=== PATIENT | female | born 1945 | race Caucasian/White ===

== ENCOUNTER 2016-10-08 11:22 | Inpatient (IN) | payer MEDICARE, MEDICAID ==
[~2016-10-08] VITALS: Ht 165.1 cm; Wt 79.8 kg
[~2016-10-08 11:22] MED LIST: ALPR0.5T8 PO; AMLO1TAB39 PO; ASPI-991 PO; ATOR10TA PO; BLOO-140 IN; CALC500T29 PO; CEPH-570 PO; ERGO50003 PO; FLUO-120 PO; LEVO100T9 PO; METF500T4 PO; VENL150C2 PO
[2016-10-08] MEDS ORDERED: LORAZEPAM INJ 2 MG/ML VIAL ONE (11:25)
--- NOTE | 2016-10-08 11:26 | NUR ---
PT BIBRA FROM HOME. DAUGHTER CALLED 911 CONCERN ABOUT MOTHER FOR POSSIBLE PROZAC OD. PT AGITATED, RESTLESS FINANCIAL INSTITUTION TREASURER. YELLING "I WANT TO GO HOME" AND LOOKING FOR HER DAUGHTER. PLACED ON 2 PT RESTRAINT PER ERMD ORDER. PLACED ON MONITOR. STABLE VITALS. AWAITING MD SIMMONS.
[2016-10-08] MEDS ORDERED: LORAZEPAM INJ 2 MG/ML VIAL IM ONE (11:30)
--- NOTE | 2016-10-08 11:34 | NUR ---
FLAGMAN AT BEDSIDE FOR BLOOD DRAW.
[2016-10-08 11:35] LABS: BASOPHILS # (AUTO) 0.2 /CMM (0.0-0.2); BASOPHILS % (AUTO) 1.8 % (0.0-2.0); EOSINOPHILS # (AUTO) 0.1 /CMM (0.0-0.7); EOSINOPHILS % (AUTO) 0.6 % (0.0-6.0); HEMATOCRIT 39 % (33-45); HEMOGLOBIN 12.9 g/dL (11.5-14.8); LYMPHOCYTES % (AUTO) 31.8 % (20.0-44.0); MEAN CORPUSCULAR HEMOGLOBIN 30 PG (26.0-33.0); MEAN CORPUSCULAR HGB CONC 33 g/dl (31.0-36.0); MEAN CORPUSCULAR VOLUME 91 fL (82-100); MONOCYTES # (AUTO) 0.5 /CMM (0.1-1.30); MONOCYTES % (AUTO) 5.5 % (2.0-12.0); NEUTROPHILS # (AUTO) 5.6 /CMM (1.8-8.9); NEUTROPHILS % (AUTO) 60.3 % (43.0-81.0); PLATELET COUNT (AUTO) 358 /CMM (150-450); RDW COEFFICIENT OF VARIATION 13.3 (11.5-15.0); RED BLOOD CELL COUNT(AUTO) 4.29 MIL/uL (4.0-5.2); WHITE BLOOD COUNT (AUTO) 9.4 K/uL (4.3-11.0)
[2016-10-08 11:42] LABS: CALCIUM, SERUM 8.9 mg/dL (8.5-10.1); CARBON DIOXIDE 27 mmol/L (21-32); CHLORIDE 104 mmol/L (98-107); CREATININE 0.9 mg/dL (0.6-1.3); GLUCOSE 124 mg/dL (74-106); POTASSIUM 4.4 mmol/L (3.5-5.1); SODIUM SERUM 138 mmol/L (136-145); UREA NITROGEN, BLOOD 22 mg/dL (7-18)
[2016-10-08 11:44] LABS: ALCOHOL, BLOOD < 3 mg/dL (0-0)
--- NOTE | 2016-10-08 11:56 | NUR ---
CALLED ALEXI MONDRAGON FOR PSYCH EVAL
--- NOTE | 2016-10-08 12:07 | NUR ---
PT UNABLE TO PROVIDE URINE SAMPLE. DR WALT JOE.
--- NOTE | 2016-10-08 13:23 | NUR ---
REPORT CALLED TO MARIAN. PT TRANSFERED TO FLOOR. STABLE CONDITION.
[2016-10-08] MEDS ORDERED: MAG HYDROX/AL HYDROX/SIMETH 30 ML UDC PO PRN (14:00)
[2016-10-08] MEDS ORDERED: MAGNESIUM HYDROXIDE 30 ML UDC PO PRN (14:00)
[2016-10-08] MEDS: LORAZEPAM 0.5 MG TABLET PO PRN (14:20)
--- NOTE | 2016-10-08 14:23 | NUR ---
OIL BAY TECHNICIAN-NOTES NOTED PATIENT VERY ANXIOUS UNABLE TO SIT STILL STATED" I WANT TO GO HOME", REDIRECTED PATIENT ,OFFERED ATIVAN AND AGREED. ATIVAN 1MG P.O GIVEN PRN ORDER. WILL CONT. MONITORING FOR SAFETY AND BEHAVIOR.
[2016-10-08 16:00] VITALS: BP 150/96
[2016-10-08 16:55] VITALS: BP 127/55
[2016-10-08] MEDS: ACETAMINOPHEN 325 MG TABLET PO PRN (17:56)
--- NOTE | 2016-10-08 17:56 | NUR ---
TECHNOLOGY APPLICATIONS TEACHER-NOTES PATIENT REQUESTING FOR TYLENOL FOR HEADACHE, TYLENOL 650MG P.O GIVEN ORDERED.WILL CONT. MONITORING FOR SAFETY.
--- NOTE | 2016-10-08 17:59 | NUR ---
MANAGER HOUSEKEEPING-NOTES ADMITTED 71 Y.O FEMALE PATIENT FROM ER FOR 5150 FOR DTS/GD. DR. HUMPHREY (PSYCHIATRIST) MADE AWARE OF PATIENT ADMISSION IN THE UNIT WITH ORDERS. CALLED [facility] FOR DR. JACOB ( MEDICAL) FOR ORDERS STILL AWAITING FOR CALL BACK. PATIENT SON ZURI MADE AWARE OF PATIENT ADMISSION. ON FACE TO FACE ASSESSMENT PATIENT VERBALIZED THAT SHE IS DEPRESSED BUT DENIES SI/HI AT THIS TIME. PATIENT IS ANXIOUS,CRYING WANTED TO GO HOME . REDIRECTED AND ATIVAN 1MG P.O GIVEN PRN ORDER. PATIENT REFUSED BODY ASSESSMENT DESPITE EXPLANATIONS OF HOSPITAL POLICIES. CONTRABAND DONE. PATIENT WAS ORIENTED IN THE UNIT AND UNIT POLICIES. ALL NEEDS ATTENDED AND ANTICIPATED. WILL ENDORSE TO FITTER AND TURNER FOR CONTINUITY OF CARE.
--- NOTE | 2016-10-08 18:19 | NUR ---
DIVISION HUMAN RESOURCES MANAGER-NOTES RECEIVED CALL FROM DR. JACOB STATED SHE WILL RECONCILE PATIENT MEDICATIONS.
[2016-10-08 19:54] VITALS: BP 146/69
[2016-10-08] MEDS ORDERED: DEXTROSE 50%-WATER 50 ML DISP.SYRIN IV PRN (20:30)
--- NOTE | 2016-10-08 20:30 | NUR ---
GPS RN NOTES PER PT. SMOKING 1 PACK CIGGRTE A DAY, AWARE , NEW ORDERS FOR NICODERM PATCH 21 MG DAILY.
[2016-10-08 21:00] VITALS: BP 135/70
--- NOTE | 2016-10-08 21:00 | NUR ---
RN GPS NOTES PT. REFUSED TO REMOVED THE DENTURES , PT.STATED I WANT KEEP IT .
[2016-10-08] MEDS: INSULIN REGULAR, HUMAN 100 UNIT/ML 3 ML VIAL SQ PRN (21:20)
[2016-10-08] MEDS: BLOOD SUGAR DIAGNOSTIC 1 EACH STRIP IN SCH (21:21)
--- NOTE | 2016-10-08 21:21 | NUR ---
[id number]: PT. BS 148 AND PT.REFUSED INSULIN OF 2 UNITS . ENCOURAGE PT TO BE COMPLIANT WITH MEDICATIONS. OFFERED 3X. EDUCATED PT ABOUT THE SIDE EFFECTS AND USAGE AND THE BENEFITS OF MEDICATION. PT STATED, "I DON'T WANTED , I WANT GO HOME .
[2016-10-08] MEDS: ZOLPIDEM TARTRATE 5 MG TABLET PO PRN (21:26)
[2016-10-09] MEDS ORDERED: hydrALAZINE HCL 25 MG TABLET PO PRN (00:30)
[2016-10-09] MEDS: ACETAMINOPHEN 325 MG TABLET PO PRN ×2 (04:18→09:30)
--- NOTE | 2016-10-09 06:30 | NUR ---
GPS RN NOTES PT. REFUSED TO PROVIDE URINE SPECIMEN AT THIS TIME , ENCOURAGED FOR SPECIMEN STILL REFUSED ENDORSE TO NEXT SHIFT FOR FOLLOW UP.
--- NOTE | 2016-10-09 07:21 | NUR ---
GPS RN NOTES PT. SLEPT 6 HOURS NO DISTRESS NOTED , DENIES SI HI / DUNGING SHIFT ENDORSE TO NEXT, SHIFT FOR CONTINUITY OF CARE .
[2016-10-09 08:00] VITALS: BP 104/66
[2016-10-09] MEDS: NICOTINE PATCH (21MG) 21 MG PATCH.TD24 TD SCH (08:31)
[2016-10-09] MEDS: BLOOD SUGAR DIAGNOSTIC 1 EACH STRIP IN SCH ×4 (08:31→21:08)
[2016-10-09] MEDS: METFORMIN 500 MG TABLET PO SCH ×2 (08:32→17:10)
[2016-10-09] MEDS: ATORVASTATIN 10 MG TABLET PO SCH (08:32)
[2016-10-09] MEDS: LEVOTHYROXINE SODIUM 100 MCG TABLET PO SCH (08:33)
[2016-10-09 08:43] LABS: ALBUMIN 2.9 g/dL (3.4-5.0); BILIRUBIN,TOTAL 0.2 mg/dL (0.2-1.0); CALCIUM, SERUM 8.7 mg/dL (8.5-10.1); CREATININE 0.7 mg/dL (0.6-1.3); TOTAL PROTEIN, SERUM 6.4 g/dL (6.4-8.2)
[2016-10-09] MEDS: INSULIN REGULAR, HUMAN 100 UNIT/ML 3 ML VIAL SQ PRN ×2 (08:44→17:42)
--- NOTE | 2016-10-09 09:00 | NUR ---
GPS/RN PATIENT REFUSED TO REMOVE DENTURES X 3, EXPLAINED RISKS BUT STILL REFUSED. WAIVER SIGNED BY PATIENT
[2016-10-09] MEDS: ASPIRIN EC 81 MG TABLET.DR PO SCH (09:22)
[2016-10-09] MEDS: LORAZEPAM 0.5 MG TABLET PO PRN ×3 (09:34→23:35)
--- NOTE | 2016-10-09 09:34 | NUR ---
GPS/RN PATIENT AGITATED, ANXIOUS, UNABLE TO RE-DIRECT, ADMINISTERED ATIVAN 1 MG PO ORDERED, WILL CONTINUE TO MONITOR.
--- NOTE | 2016-10-09 10:50 | NUR ---
Initial discharge plan: Patient resides at her home located at [address] [place], [place] [id number] . Daughter Olivia ([phone]) and son Bay [phone] and want her placed in a skilled nursing facility. STEF will follow up wtih her therapist Freddie Wilder [phone]. SW will help form a safe and proper discharge. For smoking cessation, patient was referred to [facility] 800-LUNGUSA or [facility] [phone].
--- NOTE | 2016-10-09 12:05 | NUR ---
GPS/RN PATIENT IS EXTREMELY AGITATED AND ANXIOUS, REFUSED ACCUCHECK X 3, EXPLAINED RISKS AND BENEFITS BUT CONTINUES TO REFUSE, WILL CONTINUE TO ENCOURAGE TO COMPLY WITH MD REGIMEN AND TREATMENTS.
--- NOTE | 2016-10-09 12:47 | NUR ---
SW received a voicemail from pt's sister, Fariha [phone] who also requested pt. to be placed in a truck terminal manager facility. STEF will start the placement process.
[2016-10-09] MEDS ORDERED: DIVALPROEX SODIUM 250 MG TABLET.DR PO SCH (13:30)
[2016-10-09] MEDS ORDERED: PAROXETINE HCL 20 MG TABLET PO SCH (13:30)
--- NOTE | 2016-10-09 15:53 | NUR ---
GPS/RN PATIENT PRESENTS WITH ACUTE AGITATION, DR HUMPHREY NOTIFIED REGARDING THE ATIVAN 1MG Q 6 HOURS, WITH A START TIME OF 1800 TODAY, HE STATED THAT I COULD ADMINISTER FIRST DOSE NOW. ADMINISTERED ORDERED, WILL CONTINUE TO MONITOR.
[2016-10-09 16:22] VITALS: BP 137/77
[2016-10-09] MEDS: DIVALPROEX SODIUM 250 MG TABLET.DR PO SCH (17:10)
[2016-10-09] MEDS: PAROXETINE HCL 20 MG TABLET PO SCH (17:16)
[2016-10-09 20:00] VITALS: BP 114/62
--- NOTE | 2016-10-09 20:15 | NUR ---
GPS/RN NOTE: PATIENT UP AMBULATING AT THE HALLWAY, CRYING, VERY EMOTIONAL, BACK AND FORTH TO THE NURSING STATION, ASKING FOR SLEEPING PILL. EXPLAINED THAT IT IS TO EARLY FOR HER THAT. PATIENT KEPT REPEATING HERSELF MANY TIMES. HAD HER ATIVAN AT 1552.
[2016-10-09] MEDS: ZOLPIDEM TARTRATE 5 MG TABLET PO PRN (20:27)
--- NOTE | 2016-10-09 20:28 | NUR ---
GPS/RN NOTE: RERQUESTING FOR HER SLEEPING PILL, TEMAZEPAM 7.5 MG TAB 1 PO GIVEN
--- NOTE | 2016-10-09 21:08 | NUR ---
GPS/RN NOTE: ACCUCHECK 112 MG/DL, NO INSULIN S. SCALE DUE AT THIS TIME. HS SNACK MILK AND PUDDING GIVEN.
--- NOTE | 2016-10-09 21:46 | NUR ---
GPS/RN NOTE: PATIENT ASLEEP AT THIS TIME.
--- NOTE | 2016-10-09 23:37 | NUR ---
GPS/RN NOTE: PATIENT AWAKE, FEELING ANXIOUS, LORAZEPAM 1 MG PO GIVEN
[2016-10-10 08:00] VITALS: BP 134/66
[2016-10-10] MEDS: BLOOD SUGAR DIAGNOSTIC 1 EACH STRIP IN SCH ×4 (08:10→21:20)
[2016-10-10] MEDS: LEVOTHYROXINE SODIUM 100 MCG TABLET PO SCH (08:19)
[2016-10-10] MEDS: ATORVASTATIN 10 MG TABLET PO SCH (08:55)
[2016-10-10] MEDS: DIVALPROEX SODIUM 250 MG TABLET.DR PO SCH ×3 (08:55→16:11)
[2016-10-10] MEDS: METFORMIN 500 MG TABLET PO SCH ×2 (08:56→16:11)
[2016-10-10] MEDS: NICOTINE PATCH (21MG) 21 MG PATCH.TD24 TD SCH (08:56)
[2016-10-10] MEDS: PAROXETINE HCL 20 MG TABLET PO SCH (08:56)
[2016-10-10] MEDS: ASPIRIN EC 81 MG TABLET.DR PO SCH (08:56)
[2016-10-10] MEDS: LORAZEPAM 0.5 MG TABLET PO PRN ×2 (10:24→18:32)
--- NOTE | 2016-10-10 10:29 | NUR ---
BIOMETRIC SCREENER-NOTES NOTED PATIENT VERY ANXIOUS ,PACING IN AND OUT OF HER ROOM, REDIRECTED PATIENT ,OFFERED ATIVAN AND AGREED. ATIVAN 1MG P.O GIVEN PRN ORDER. WILL CONT. MONITORING FOR SAFETY AND BEHAVIOR.
[2016-10-10] MEDS: QUETIAPINE FUMARATE 25 MG TABLET PO SCH ×2 (12:19→21:21)
[2016-10-10] MEDS: INSULIN REGULAR, HUMAN 100 UNIT/ML 3 ML VIAL SQ PRN ×2 (12:22→21:39)
--- NOTE | 2016-10-10 12:23 | NUR ---
BONDING EQUIPMENT OPERATOR-NOTES PATIENT BLOOD SUGAR WAS 136MG/DL,2 UNITS OF HUMULIN R GIVEN .
--- NOTE | 2016-10-10 12:25 | NUR ---
STEF spoke with Chloé [phone] from [facility] Address: [address] [facility], [place] [address] fax [phone] and she requested paperwork to be faxed to review. Chloé mentioned that they have no bed availability at this time, but may have it next week. STEF faxed paperwork.
--- NOTE | 2016-10-10 14:10 | NUR ---
SW left a voicemail for pt's son, Bay [phone] informing him of all that's being done in order to have an accepting facility for the patient to go to. STEF will follow up
[2016-10-10 16:33] VITALS: BP 124/66
--- NOTE | 2016-10-10 18:10 | NUR ---
DIMPLING MACHINE OPERATOR-NOTES PATIENT UNABLE TO PROVIDE URINE. STATED" I DON'T WANT IT", ATTEMPTED SEVERAL TIMES BUT PATIENT STILL UNCOOPERATIVE. WILL ENDORSE TO THE SENIOR CHEMIST.
--- NOTE | 2016-10-10 19:13 | NUR ---
ASSOCIATE BROKER-NOTES NOTED PATIENT VERY ANXIOUS ,PACING IN AND OUT OF HER ROOM,REQUESTING FOR ATIVAN. ATIVAN 1MG P.O GIVEN PRN ORDER . WILL CONT. MONITORING FOR SAFETY AND BEHAVIOR.
--- NOTE | 2016-10-10 19:26 | NUR ---
GPS/RN NOTE:' AWAKE, ALERT, KEPT COMING TO THE N. STATION, ASKING FOR SLEEPING PILL, EXPLAINED MEDICATION NOT DUE YE. NO APPARENT DISTRESS NOTED. SON VISITING.
[2016-10-10 20:00] VITALS: BP 111/52
--- NOTE | 2016-10-10 21:23 | NUR ---
GPS/RN NOTE: ACCUCHECK 138 MG/DL
[2016-10-10] MEDS: ZOLPIDEM TARTRATE 5 MG TABLET PO PRN (21:25)
--- NOTE | 2016-10-10 21:25 | NUR ---
GPS/RN NOTE: C/O INSOMNIA, AMBIEN 5 MG TAB PO GIVEN.
[2016-10-10] MEDS: ACETAMINOPHEN 325 MG TABLET PO PRN (21:53)
--- NOTE | 2016-10-10 21:53 | NUR ---
GPS/RN NOTE: C/O GENERALIZED BODY PAIN, TYLENOL 650 MG TAB PO GIVEN.
--- NOTE | 2016-10-11 07:40 | NUR ---
BLOOD BANK MANAGER-NOTES PATIENT BLOOD SUGAR WAS 170MG/DL,3 UNITS OF HUMULIN R GIVEN .
[2016-10-11] MEDS: BLOOD SUGAR DIAGNOSTIC 1 EACH STRIP IN SCH ×4 (07:47→21:36)
[2016-10-11] MEDS: LEVOTHYROXINE SODIUM 100 MCG TABLET PO SCH (08:25)
[2016-10-11] MEDS: INSULIN REGULAR, HUMAN 100 UNIT/ML 3 ML VIAL SQ PRN ×3 (08:27→21:07)
[2016-10-11] MEDS: DIVALPROEX SODIUM 250 MG TABLET.DR PO SCH ×3 (08:31→16:21)
[2016-10-11] MEDS: ASPIRIN EC 81 MG TABLET.DR PO SCH (08:31)
[2016-10-11] MEDS: QUETIAPINE FUMARATE 25 MG TABLET PO SCH ×3 (08:31→21:36)
[2016-10-11] MEDS: METFORMIN 500 MG TABLET PO SCH ×2 (08:31→16:21)
[2016-10-11] MEDS: NICOTINE PATCH (21MG) 21 MG PATCH.TD24 TD SCH (08:31)
[2016-10-11] MEDS: ATORVASTATIN 10 MG TABLET PO SCH (08:31)
[2016-10-11 08:37] VITALS: BP 120/70
[2016-10-11] MEDS: ACETAMINOPHEN 325 MG TABLET PO PRN (08:58)
[2016-10-11] MEDS: PAROXETINE HCL 20 MG TABLET PO SCH (08:58)
--- NOTE | 2016-10-11 08:59 | NUR ---
OUTSIDE RIGGER-NOTES PATIENT STATED" GIVE ME TYLENOL FOR MY HEADACHE", TYLENOL 650MG P.O GIVEN PRN ORDER. WILL CONT. MONITORING FOR SAFETY.
[2016-10-11 16:12] VITALS: BP 140/66
[2016-10-11] MEDS: LORAZEPAM 0.5 MG TABLET PO PRN (17:07)
--- NOTE | 2016-10-11 17:09 | NUR ---
BILL SORTER-NOTES NOTED PATIENT VERY ANXIOUS ,PACING IN AND OUT OF HER ROOM,CRYING REQUESTING FOR ATIVAN. ATIVAN 1MG P.O GIVEN PRN ORDER . WILL CONT. MONITORING FOR SAFETY AND BEHAVIOR.
--- NOTE | 2016-10-11 17:47 | NUR ---
BRICK BURNER HEAD-NOTES PATIENT BLOOD SUGAR WAS 136MG/DL,2 UNITS OF HUMULIN R GIVEN .
[2016-10-11 20:00] VITALS: BP 139/79
[2016-10-12] MEDS: ZOLPIDEM TARTRATE 5 MG TABLET PO PRN (00:31)
[2016-10-12] MEDS: BLOOD SUGAR DIAGNOSTIC 1 EACH STRIP IN SCH ×4 (07:43→21:31)
[2016-10-12] MEDS: INSULIN REGULAR, HUMAN 100 UNIT/ML 3 ML VIAL SQ PRN (07:44)
[2016-10-12] MEDS: METFORMIN 500 MG TABLET PO SCH ×2 (08:08→16:28)
[2016-10-12] MEDS: ASPIRIN EC 81 MG TABLET.DR PO SCH (08:08)
[2016-10-12] MEDS: ATORVASTATIN 10 MG TABLET PO SCH (08:08)
[2016-10-12] MEDS: QUETIAPINE FUMARATE 25 MG TABLET PO SCH ×3 (08:08→21:31)
[2016-10-12] MEDS: PAROXETINE HCL 20 MG TABLET PO SCH (08:09)
[2016-10-12] MEDS: LEVOTHYROXINE SODIUM 100 MCG TABLET PO SCH (08:09)
[2016-10-12] MEDS: NICOTINE PATCH (21MG) 21 MG PATCH.TD24 TD SCH (08:09)
[2016-10-12] MEDS: DIVALPROEX SODIUM 250 MG TABLET.DR PO SCH ×3 (08:09→16:28)
[2016-10-12 08:11] VITALS: BP 152/80
--- NOTE | 2016-10-12 10:00 | NUR ---
RN-NOTES NOTED PT VERY ANXIOUS ,PACING IN AND OUT OF HER ROOM, CRYING REQUESTING TO GIVE HER MORE MEDICATIONS. ATIVAN 1MG P.O GIVEN PRN ORDER . WILL CONT. TO MONITOR FOR SAFETY AND BEHAVIOR.
[2016-10-12] MEDS: LORAZEPAM 0.5 MG TABLET PO PRN ×2 (10:07→16:01)
--- NOTE | 2016-10-12 12:00 | NUR ---
RN NOTES PT REFUSED FOR BLOOD SUGAR CHECK. EXPLAINED TO THE PT THE RISK AND BENEFITS THAT SHE'S AT RISK FOR HYPO AND HYPERGLYCEMIA, BUT STILL REFUSED.
[2016-10-12] MEDS: ACETAMINOPHEN 325 MG TABLET PO PRN (12:45)
[2016-10-12 16:11] VITALS: BP 148/78
--- NOTE | 2016-10-12 17:12 | NUR ---
RN NOTES BLOOD SUGAR 120, NO INSULIN COVERAGE.
[2016-10-12 21:00] VITALS: BP 130/72
[2016-10-13] MEDS: ZOLPIDEM TARTRATE 5 MG TABLET PO PRN ×2 (01:26→21:31)
[2016-10-13] MEDS: LORAZEPAM 0.5 MG TABLET PO PRN ×3 (03:15→17:09)
--- NOTE | 2016-10-13 03:15 | NUR ---
GPS RN NOTE, PATIENT HAS A COMPLAINT OF FEELING ANXIOUS AND STATES, " I CAN'T SLEEP ". PATIENT VITAL SIGNS ARE STABLE. GAVE ATIVAN 1MG PO Q6HR PRN ORDERED. WILL REASSESS FOR ANXIETY AND I WILL CONTINUE TO MONITOR THIS PATIENT.
--- NOTE | 2016-10-13 07:25 | NUR ---
RN GPS NOTES PT. SLEPT 6 HOURS , DENIES SI HI AT THIS TIME, NO ACUTE DISTRESS NOTED, ENDORSE TO NEXT SHIFT FOR CONTINUITY OF CARE .
[2016-10-13 08:00] VITALS: BP 108/50
[2016-10-13] MEDS: DIVALPROEX SODIUM 250 MG TABLET.DR PO SCH ×3 (08:03→16:25)
[2016-10-13] MEDS: QUETIAPINE FUMARATE 25 MG TABLET PO SCH ×4 (08:03→20:18)
[2016-10-13] MEDS: LEVOTHYROXINE SODIUM 100 MCG TABLET PO SCH (08:04)
[2016-10-13] MEDS: PAROXETINE HCL 20 MG TABLET PO SCH (08:04)
[2016-10-13] MEDS: METFORMIN 500 MG TABLET PO SCH ×2 (08:04→16:25)
[2016-10-13] MEDS: ATORVASTATIN 10 MG TABLET PO SCH (08:04)
[2016-10-13] MEDS: ASPIRIN EC 81 MG TABLET.DR PO SCH (08:04)
[2016-10-13] MEDS: NICOTINE PATCH (21MG) 21 MG PATCH.TD24 TD SCH (08:04)
[2016-10-13] MEDS: BLOOD SUGAR DIAGNOSTIC 1 EACH STRIP IN SCH ×4 (08:31→23:14)
--- NOTE | 2016-10-13 09:49 | NUR ---
GPS/RN PATIENT IS AGITATED, ANXIOUS, CRYING, YELLING, ADMINISTERED ATIVAN 1 MG PO ORDERED, WILL CONTINUE TO MONITOR.
[2016-10-13] MEDS: ACETAMINOPHEN 325 MG TABLET PO PRN ×2 (14:41→21:30)
--- NOTE | 2016-10-13 14:44 | NUR ---
GPS/RN PATIENT REPORTS HEADACHE 10/20, ADMINISTERED TYLENOL PO ORDERED, WILL CONTINUE TO MONITOR.
[2016-10-13 16:00] VITALS: BP 148/66
--- NOTE | 2016-10-13 17:15 | NUR ---
GPS/RN PATIENT PRESENTS WITH ACUTE ANXIETY, ADMINISTERED ATIVAN PO ORDERED, WILL CONTINUE TO MONITOR.
[2016-10-13 19:32] VITALS: BP 142/79
[2016-10-13] MEDS: INSULIN REGULAR, HUMAN 100 UNIT/ML 3 ML VIAL SQ PRN (23:16)
[2016-10-14] MEDS: LORAZEPAM 0.5 MG TABLET PO PRN ×2 (04:09→15:46)
[2016-10-14] MEDS: BLOOD SUGAR DIAGNOSTIC 1 EACH STRIP IN SCH ×4 (07:30→21:16)
[2016-10-14 08:00] VITALS: BP 117/52
[2016-10-14] MEDS: METFORMIN 500 MG TABLET PO SCH ×2 (09:11→17:52)
[2016-10-14] MEDS: ASPIRIN EC 81 MG TABLET.DR PO SCH (09:11)
[2016-10-14] MEDS: NICOTINE PATCH (21MG) 21 MG PATCH.TD24 TD SCH (09:11)
[2016-10-14] MEDS: LEVOTHYROXINE SODIUM 100 MCG TABLET PO SCH (09:11)
[2016-10-14] MEDS: PAROXETINE HCL 20 MG TABLET PO SCH (09:12)
[2016-10-14] MEDS: ATORVASTATIN 10 MG TABLET PO SCH (09:12)
[2016-10-14] MEDS: DIVALPROEX SODIUM 250 MG TABLET.DR PO SCH ×4 (09:12→20:25)
[2016-10-14] MEDS: QUETIAPINE FUMARATE 25 MG TABLET PO SCH ×4 (09:19→20:25)
[2016-10-14] MEDS: ACETAMINOPHEN 325 MG TABLET PO PRN (19:43)
[2016-10-14] MEDS: ZOLPIDEM TARTRATE 5 MG TABLET PO PRN (21:16)
[2016-10-14] MEDS: INSULIN REGULAR, HUMAN 100 UNIT/ML 3 ML VIAL SQ PRN (22:55)
[2016-10-15] MEDS: LORAZEPAM 0.5 MG TABLET PO PRN ×2 (00:37→10:46)
[2016-10-15] MEDS: BLOOD SUGAR DIAGNOSTIC 1 EACH STRIP IN SCH ×4 (07:35→21:25)
[2016-10-15 08:00] VITALS: BP 142/69
[2016-10-15] MEDS: LEVOTHYROXINE SODIUM 100 MCG TABLET PO SCH (08:06)
[2016-10-15] MEDS: INSULIN REGULAR, HUMAN 100 UNIT/ML 3 ML VIAL SQ PRN ×3 (08:42→21:28)
--- NOTE | 2016-10-15 08:43 | NUR ---
manager cardiac-notes Patient blood sugar was 134mg/dl, 2 units of Humulin R given as prn order.
[2016-10-15] MEDS: ATORVASTATIN 10 MG TABLET PO SCH (09:09)
[2016-10-15] MEDS: ASPIRIN EC 81 MG TABLET.DR PO SCH (09:09)
[2016-10-15] MEDS: NICOTINE PATCH (21MG) 21 MG PATCH.TD24 TD SCH (09:09)
[2016-10-15] MEDS: METFORMIN 500 MG TABLET PO SCH ×2 (09:09→17:06)
[2016-10-15] MEDS: PAROXETINE HCL 20 MG TABLET PO SCH (09:09)
[2016-10-15] MEDS: QUETIAPINE FUMARATE 25 MG TABLET PO SCH ×3 (09:11→17:06)
[2016-10-15] MEDS: DIVALPROEX SODIUM 250 MG TABLET.DR PO SCH ×4 (09:14→20:22)
[2016-10-15 10:02] LABS: APPEARANCE,URINE CLEAR (CLEAR); BILIRUBIN,URINE NEGATIVE (NEGATIVE); BLOOD, URINE TRACE-INTA Ery/uL (NEGATIVE); COLOR,URINE YELLOW (YELLOW); KETONES,URINE NEGATIVE (NEGATIVE); LEUKOCYTE ESTERASE ,URINE NEGATIVE (NEGATIVE); NITRITE, URINE NEGATIVE (NEGATIVE); PH,URINE 6.5 (5.0-8.0); PROTEIN,URINE NEGATIVE (NEGATIVE); UGLUCOSE NEGATIVE (NEGATIVE); UROBILINOGEN,URINE 0.2 EU/dL (0.2)
--- NOTE | 2016-10-15 10:09 | NUR ---
STEF spoke with Chloé [phone] from [facility] Address: [address] [facility], [place] [address] fax [phone] and she says they still have no bed available. STEF will follow up with the facility tomorrow. Chloé said she is going on a maternity leave and from now on, STEF should call the facility instead.
[2016-10-15 10:23] LABS: BACTERIA,URINE None seen /HPF (None Seen); RBC,URINE 0-2 /HPF (0-2); SQUAMOUS EPITHELIAL CELL,UR None Seen /HPF (None Seen); WBC,URINE NONE SEEN /HPF (0-3)
--- NOTE | 2016-10-15 10:48 | NUR ---
FLOOR PERSON-NOTES NOTED PATIENT VERY ANXIOUS ,PACING IN AND OUT OF HER ROOM,CRYING REQUESTING FOR ATIVAN. ATIVAN 1MG P.O GIVEN PRN ORDER . WILL CONT. MONITORING FOR SAFETY AND BEHAVIOR. Addendum: 10/15/16 at 1500 by MARIAN KELLYN CORRECTIONS ON MY NOTES ABOVE. ATIVAN 0.5MG P.O GIVEN NOT ATIVAN 1MG P.O.
[2016-10-15] MEDS: hydrOXYzine PAMOATE 25 MG CAPSULE PO PRN (15:01)
--- NOTE | 2016-10-15 15:01 | NUR ---
SENIOR CONTRACT SPECIALIST-NOTES NOTED PATIENT VERY ANXIOUS ,PACING IN AND OUT OF HER ROOM,CRYING REQUESTING MEDICATION. VISTARIL 25MG P.O GIVEN PRN ORDER . WILL CONT. MONITORING FOR SAFETY AND BEHAVIOR.
--- NOTE | 2016-10-15 15:38 | NUR ---
STEF sent a referral to [facility] [address] [facility] [id number] . will follow up with Eri at the facility. Addendum: 10/16/16 at 1148 by YOKO FINCH Per Eri at the facility, pt cannot be accepted as she had a suicide attempt prior to hospital admission.
[2016-10-15 16:00] VITALS: BP 128/55
--- NOTE | 2016-10-15 17:41 | NUR ---
mechanical design drafter-notes Patient blood sugar was 167mg/dl, 3 units of Humulin R given as prn order.
[2016-10-15] MEDS: ACETAMINOPHEN 325 MG TABLET PO PRN (20:07)
[2016-10-15] MEDS: ZOLPIDEM TARTRATE 5 MG TABLET PO PRN (21:18)
[2016-10-16] MEDS: BLOOD SUGAR DIAGNOSTIC 1 EACH STRIP IN SCH ×4 (07:59→21:34)
[2016-10-16] MEDS: PAROXETINE HCL 20 MG TABLET PO SCH (08:00)
[2016-10-16] MEDS: ASPIRIN EC 81 MG TABLET.DR PO SCH (08:00)
[2016-10-16] MEDS: LEVOTHYROXINE SODIUM 100 MCG TABLET PO SCH (08:00)
[2016-10-16] MEDS: ATORVASTATIN 10 MG TABLET PO SCH (08:00)
[2016-10-16] MEDS: METFORMIN 500 MG TABLET PO SCH ×2 (08:00→16:11)
[2016-10-16] MEDS: QUETIAPINE FUMARATE 25 MG TABLET PO SCH ×3 (08:00→16:11)
[2016-10-16] MEDS: NICOTINE PATCH (21MG) 21 MG PATCH.TD24 TD SCH (08:01)
[2016-10-16] MEDS: DIVALPROEX SODIUM 250 MG TABLET.DR PO SCH ×4 (08:07→20:13)
[2016-10-16] MEDS: INSULIN REGULAR, HUMAN 100 UNIT/ML 3 ML VIAL SQ PRN ×2 (08:08→21:37)
[2016-10-16 08:16] VITALS: BP 127/55
[2016-10-16] MEDS: hydrOXYzine PAMOATE 25 MG CAPSULE PO PRN ×2 (11:14→19:48)
--- NOTE | 2016-10-16 11:16 | NUR ---
GPS RN: PATIENT IS ANXIOUS AND RESTLESS, CRYING, ASKING FOR A MEDICATION TO HELP HER CALM DOWN. VISTARIL 25MG ADMINISTERED PO ORDERED, VSS, CONTINUE TO MONITOR.
--- NOTE | 2016-10-16 11:50 | NUR ---
Pt. was referred to [facility] [address], [place] [address] . Will follow up
--- NOTE | 2016-10-16 11:52 | NUR ---
SW left a voicemail for pt's son, Bay [phone] informing that SW will find another accepting facility just in case the facility they prefer does not have a bed by the time pt. is ready for discharge.
[2016-10-16 16:32] VITALS: BP 104/50
[2016-10-16 20:00] VITALS: BP 118/58
[2016-10-16] MEDS: ZOLPIDEM TARTRATE 5 MG TABLET PO PRN (21:38)
[2016-10-16] MEDS: ACETAMINOPHEN 325 MG TABLET PO PRN (22:47)
[2016-10-17] MEDS: BLOOD SUGAR DIAGNOSTIC 1 EACH STRIP IN SCH ×4 (07:32→22:04)
[2016-10-17 08:00] VITALS: BP 139/50
[2016-10-17] MEDS: DIVALPROEX SODIUM 250 MG TABLET.DR PO SCH ×4 (08:06→20:20)
[2016-10-17] MEDS: LEVOTHYROXINE SODIUM 100 MCG TABLET PO SCH (08:06)
[2016-10-17] MEDS: PAROXETINE HCL 20 MG TABLET PO SCH (08:07)
[2016-10-17] MEDS: METFORMIN 500 MG TABLET PO SCH ×2 (08:07→16:33)
[2016-10-17] MEDS: ATORVASTATIN 10 MG TABLET PO SCH (08:07)
[2016-10-17] MEDS: NICOTINE PATCH (21MG) 21 MG PATCH.TD24 TD SCH (08:08)
[2016-10-17] MEDS: ASPIRIN EC 81 MG TABLET.DR PO SCH (08:08)
[2016-10-17] MEDS: QUETIAPINE FUMARATE 25 MG TABLET PO SCH ×3 (08:08→16:33)
--- NOTE | 2016-10-17 09:08 | NUR ---
Per Ritu from [facility] ([address] [facility] [address] ), patient was accepted to their facility.
--- NOTE | 2016-10-17 09:21 | NUR ---
RN-CO: Patient eas asked by 2 staff to shower. Patient refused.
--- NOTE | 2016-10-17 09:28 | NUR ---
SW spoke to the patient's son Bay [phone] and informed him of the accepting facility ([facility]- [address] [place] [address] ). He stated that his sister will go visit the facility and that their top choice remains [facility] Address: [address] [facility], [place] [address] fax [phone] and STEF will follow up prior to discharge to see about bed availability.
[2016-10-17] MEDS: hydrOXYzine PAMOATE 25 MG CAPSULE PO PRN ×2 (11:58→21:05)
[2016-10-17 16:07] VITALS: BP 101/68
[2016-10-17] MEDS: INSULIN REGULAR, HUMAN 100 UNIT/ML 3 ML VIAL SQ PRN (17:16)
[2016-10-17] MEDS: ACETAMINOPHEN 325 MG TABLET PO PRN (18:35)
[2016-10-17 20:00] VITALS: BP 126/66
[2016-10-17] MEDS: ZOLPIDEM TARTRATE 5 MG TABLET PO PRN (22:04)
[2016-10-18] MEDS: ACETAMINOPHEN 325 MG TABLET PO PRN (03:25)
[2016-10-18 06:34] LABS: BASOPHILS % (AUTO) 0.4 % (0.0-2.0); EOSINOPHILS # (AUTO) 0.1 /CMM (0.0-0.7); EOSINOPHILS % (AUTO) 1.1 % (0.0-6.0); HEMATOCRIT 35 % (33-45); HEMOGLOBIN 11.6 g/dL (11.5-14.8); LYMPHOCYTES # (AUTO) 2.6 /CMM (0.8-4.8); MEAN CORPUSCULAR HEMOGLOBIN 31 PG (26.0-33.0); MEAN CORPUSCULAR HGB CONC 33 g/dl (31.0-36.0); MEAN CORPUSCULAR VOLUME 91 fL (82-100); MONOCYTES # (AUTO) 0.6 /CMM (0.1-1.30); MONOCYTES % (AUTO) 6.9 % (2.0-12.0); NEUTROPHILS % (AUTO) 63.6 % (43.0-81.0); PLATELET COUNT (AUTO) 282 /CMM (150-450); RDW COEFFICIENT OF VARIATION 13.6 (11.5-15.0); RED BLOOD CELL COUNT(AUTO) 3.78 MIL/uL (4.0-5.2); WHITE BLOOD COUNT (AUTO) 9.4 K/uL (4.3-11.0)
[2016-10-18 07:07] LABS: CALCIUM, SERUM 8.9 mg/dL (8.5-10.1); CREATININE 0.8 mg/dL (0.6-1.3); MAGNESIUM 1.9 mg/dL (1.8-2.4); PHOSPHORUS 4.2 mg/dL (2.5-4.9); POTASSIUM 4.2 mmol/L (3.5-5.1)
[2016-10-18] MEDS: BLOOD SUGAR DIAGNOSTIC 1 EACH STRIP IN SCH ×4 (07:51→21:16)
[2016-10-18 08:00] VITALS: BP 123/74
[2016-10-18] MEDS: LEVOTHYROXINE SODIUM 100 MCG TABLET PO SCH (08:23)
[2016-10-18] MEDS: PAROXETINE HCL 20 MG TABLET PO SCH (08:30)
[2016-10-18] MEDS: NICOTINE PATCH (21MG) 21 MG PATCH.TD24 TD SCH (08:30)
[2016-10-18] MEDS: QUETIAPINE FUMARATE 25 MG TABLET PO SCH ×3 (08:30→16:34)
[2016-10-18] MEDS: METFORMIN 500 MG TABLET PO SCH ×2 (08:30→16:34)
[2016-10-18] MEDS: ATORVASTATIN 10 MG TABLET PO SCH (08:30)
[2016-10-18] MEDS: ASPIRIN EC 81 MG TABLET.DR PO SCH (08:31)
[2016-10-18] MEDS: DIVALPROEX SODIUM 250 MG TABLET.DR PO SCH ×4 (08:34→20:06)
[2016-10-18 16:00] VITALS: BP 107/54
[2016-10-18 20:00] VITALS: BP 116/52
[2016-10-18] MEDS: ZOLPIDEM TARTRATE 5 MG TABLET PO PRN (20:59)
[2016-10-18] MEDS: INSULIN REGULAR, HUMAN 100 UNIT/ML 3 ML VIAL SQ PRN (21:20)
--- NOTE | 2016-10-18 21:20 | NUR ---
GPS/RN NOTE: ACCUCHECK 140 MG/DL, 2 UNITS REG. INSULIN SC ADMINISTERED. HAD HS SNACKS.
[2016-10-19] MEDS: BLOOD SUGAR DIAGNOSTIC 1 EACH STRIP IN SCH ×4 (07:43→22:00)
[2016-10-19] MEDS: LEVOTHYROXINE SODIUM 100 MCG TABLET PO SCH (07:43)
[2016-10-19 08:00] VITALS: BP 110/67
[2016-10-19 08:21] VITALS: BP 110/67
[2016-10-19] MEDS: PAROXETINE HCL 20 MG TABLET PO SCH (08:21)
[2016-10-19] MEDS: ASPIRIN EC 81 MG TABLET.DR PO SCH (08:21)
[2016-10-19] MEDS: METFORMIN 500 MG TABLET PO SCH ×2 (08:21→16:41)
[2016-10-19] MEDS: NICOTINE PATCH (21MG) 21 MG PATCH.TD24 TD SCH (08:21)
[2016-10-19] MEDS: ATORVASTATIN 10 MG TABLET PO SCH (08:21)
[2016-10-19] MEDS: QUETIAPINE FUMARATE 25 MG TABLET PO SCH ×3 (08:21→16:41)
[2016-10-19] MEDS: DIVALPROEX SODIUM 250 MG TABLET.DR PO SCH ×4 (08:27→20:38)
[2016-10-19 16:00] VITALS: BP 100/56
[2016-10-19] MEDS: hydrOXYzine PAMOATE 25 MG CAPSULE PO PRN (16:45)
--- NOTE | 2016-10-19 19:30 | NUR ---
GPS RN NOTES ON BED A/O X2-3.WITH PERIODS OF CONFUSION,CLAIMED SHE WANTS SOMETHING TO RELAX.APPEARS DEPRESSED,MED COMPLIANT.VERBALIZING SHE WANTS TO GO HOME.WILL CONTINUE TO MONITOR BEHAVIOR.
[2016-10-19 19:54] VITALS: BP 102/46
--- NOTE | 2016-10-19 20:28 | NUR ---
GPS RN NOTES MEDICATED ALSO WITH ANBIEN 5MG PO PER PATIENT REQUEST FOR SLEEP.WILL MONITOR HOURS OF SLEEP.
[2016-10-19] MEDS: ZOLPIDEM TARTRATE 5 MG TABLET PO PRN (20:38)
--- NOTE | 2016-10-19 20:38 | NUR ---
GPS RN NOTES APPEARS ANXIOUS,MEDICATED WITH DEPAKOTE 250MG PO ORDERED FOR MOOD
--- NOTE | 2016-10-19 22:00 | NUR ---
GPS RN NOTES REFUSED BLOOD SUGAR CHECK.SHE WANTS TO SLEEP.
--- NOTE | 2016-10-20 01:00 | NUR ---
MOTHER TESTER-NOTES PATIENT REFUSED INSULIN COVERAGE DESPITE EXPLANATIONS RISK AND BENEFITS. STATED" NO ,NO INSULIN". OFFERED X3.
--- NOTE | 2016-10-20 01:25 | NUR ---
GPS RN NOTES APPEARS ANXIOUS,VISTARIL 25MG PO GIVEN
[2016-10-20] MEDS: hydrOXYzine PAMOATE 25 MG CAPSULE PO PRN (01:32)
[2016-10-20] MEDS: ACETAMINOPHEN 325 MG TABLET PO PRN (04:51)
--- NOTE | 2016-10-20 04:51 | NUR ---
GPS RN NOTES AWAKE,ASKING FOR MILK.C/O HEADACHE,MEDICATED WITH TYLENOL 650MG PO
[2016-10-20 06:27] LABS: BASOPHILS % (AUTO) 0.3 % (0.0-2.0); EOSINOPHILS # (AUTO) 0.1 /CMM (0.0-0.7); EOSINOPHILS % (AUTO) 1.2 % (0.0-6.0); HEMATOCRIT 34 % (33-45); HEMOGLOBIN 11.6 g/dL (11.5-14.8); LYMPHOCYTES # (AUTO) 2.4 /CMM (0.8-4.8); LYMPHOCYTES % (AUTO) 26.1 % (20.0-44.0); MEAN CORPUSCULAR HEMOGLOBIN 31 PG (26.0-33.0); MEAN CORPUSCULAR HGB CONC 34 g/dl (31.0-36.0); MEAN CORPUSCULAR VOLUME 91 fL (82-100); MONOCYTES # (AUTO) 0.6 /CMM (0.1-1.30); MONOCYTES % (AUTO) 6.7 % (2.0-12.0); NEUTROPHILS # (AUTO) 6.1 /CMM (1.8-8.9); NEUTROPHILS % (AUTO) 65.7 % (43.0-81.0); PLATELET COUNT (AUTO) 290 /CMM (150-450); RDW COEFFICIENT OF VARIATION 13.4 (11.5-15.0); RED BLOOD CELL COUNT(AUTO) 3.78 MIL/uL (4.0-5.2); WHITE BLOOD COUNT (AUTO) 9.3 K/uL (4.3-11.0)
[2016-10-20 06:46] LABS: ALBUMIN 2.6 g/dL (3.4-5.0); BILIRUBIN,TOTAL 0.2 mg/dL (0.2-1.0); CALCIUM, SERUM 8.5 mg/dL (8.5-10.1); CREATININE 0.8 mg/dL (0.6-1.3); POTASSIUM 3.9 mmol/L (3.5-5.1); TOTAL PROTEIN, SERUM 6.3 g/dL (6.4-8.2)
[2016-10-20] MEDS: BLOOD SUGAR DIAGNOSTIC 1 EACH STRIP IN SCH ×4 (07:46→22:31)
[2016-10-20] MEDS: LEVOTHYROXINE SODIUM 100 MCG TABLET PO SCH (07:55)
[2016-10-20 08:00] VITALS: BP 118/50
[2016-10-20] MEDS: ASPIRIN EC 81 MG TABLET.DR PO SCH (08:07)
[2016-10-20] MEDS: METFORMIN 500 MG TABLET PO SCH ×2 (08:07→16:29)
[2016-10-20] MEDS: QUETIAPINE FUMARATE 25 MG TABLET PO SCH ×4 (08:07→21:43)
[2016-10-20] MEDS: NICOTINE PATCH (21MG) 21 MG PATCH.TD24 TD SCH (08:07)
[2016-10-20] MEDS: PAROXETINE HCL 20 MG TABLET PO SCH (08:07)
[2016-10-20] MEDS: DIVALPROEX SODIUM 250 MG TABLET.DR PO SCH ×4 (08:07→21:43)
[2016-10-20] MEDS: ATORVASTATIN 10 MG TABLET PO SCH (08:08)
--- NOTE | 2016-10-20 12:49 | NUR ---
STEF spoke with Satnam from [facility] Address: [address] [facility], [place] [address] fax [phone] who confirmed that they still do not have available beds and do not anticipate a discharge anytime soon. STEF will notify the family.
--- NOTE | 2016-10-20 12:55 | NUR ---
SW left a voicemail for pt's son Bay [phone] and informed him that the only facility as of now is ([facility]- [address] [place] [address] ). and that [facility] Address: [address] [facility], [place] [address] fax [phone] does not have a bed available still and don't have any discharges happening anytime soon. SW asked to contact her with any other preferences and if there is any SW attempt and see if there will be any other accepting facility before discharging the patient Thursday or Thursday.
[2016-10-20 16:00] VITALS: BP 108/60
[2016-10-20 19:40] VITALS: BP 113/48
[2016-10-21] MEDS: ZOLPIDEM TARTRATE 5 MG TABLET PO PRN (01:21)
[2016-10-21] MEDS: BLOOD SUGAR DIAGNOSTIC 1 EACH STRIP IN SCH ×4 (07:43→21:20)
[2016-10-21] MEDS: LEVOTHYROXINE SODIUM 100 MCG TABLET PO SCH (07:56)
[2016-10-21 08:00] VITALS: BP 117/52
[2016-10-21] MEDS: METFORMIN 500 MG TABLET PO SCH ×2 (08:17→16:28)
[2016-10-21] MEDS: DIVALPROEX SODIUM 250 MG TABLET.DR PO SCH ×4 (08:17→21:07)
[2016-10-21] MEDS: ASPIRIN EC 81 MG TABLET.DR PO SCH (08:17)
[2016-10-21] MEDS: PAROXETINE HCL 20 MG TABLET PO SCH (08:17)
[2016-10-21] MEDS: NICOTINE PATCH (21MG) 21 MG PATCH.TD24 TD SCH (08:17)
[2016-10-21] MEDS: ATORVASTATIN 10 MG TABLET PO SCH (08:18)
[2016-10-21] MEDS: QUETIAPINE FUMARATE 25 MG TABLET PO SCH (08:18)
[2016-10-21] MEDS: ARIPIPRAZOLE 5 MG TABLET PO SCH (10:48)
[2016-10-21 11:10] LABS: HOMOCYSTEINE, PLASMA 16.2 umol/L (0.0-15.0)
--- NOTE | 2016-10-21 15:47 | NUR ---
SW spoke with pt's daughter, Olivia [phone] who wanted SW to try other (better) facilities. SW promised to try others.
--- NOTE | 2016-10-21 15:48 | NUR ---
STEF faxed a referral to [facility] [address], [place], [place] [id number] . Will follow up Addendum: 10/22/16 at 1219 by YOKO FINCH Pt. has been accepted per Lucinda at the facility. Ricky, [place] [phone] has been notified.
--- NOTE | 2016-10-21 15:50 | NUR ---
STEF faxed a referral to [address] [facility], [place] [address] . Will follow up
--- NOTE | 2016-10-21 15:51 | NUR ---
STEF sent a referral to [facility] [address] [facility], [place] [address] . Will follow up Addendum: 10/22/16 at 1218 by YOKO FINCH Per Alfonso at the facility, pt is accepted. STEF notified Olivia, the daughter [phone]
[2016-10-21 16:00] VITALS: BP 120/86
--- NOTE | 2016-10-21 16:09 | NUR ---
Pt's brother, Sathya Martinez [phone] has left a voicemail and SW called back to speak with him. Sathya wanted updates about pt's status and was thankful for the call and for the work that's being done. He said he will be in touch.
[2016-10-21] MEDS: INSULIN REGULAR, HUMAN 100 UNIT/ML 3 ML VIAL SQ PRN (17:41)
--- NOTE | 2016-10-21 17:41 | NUR ---
TARIFF PUBLISHING AGENT-NOTES PATIENT BLOOD SUGAR WAS 138MG/DL, 2 UNITS OF HUMULIN R GIVEN PRN ORDER.
[2016-10-21] MEDS: QUETIAPINE FUMARATE 100 MG TABLET PO SCH (21:08)
[2016-10-21 21:15] VITALS: BP 153/86
--- NOTE | 2016-10-22 07:30 | NUR ---
RN INITIAL NOTE PATIENT RECEIVED IN BED RESTING. PT SLEEPING, EASILY AROUSED, ABLE TO MAKE NEEDS KNOWN NO S/S OR COMPLAINTS OF PAIN AT THIS TIME. PATIENT IS DISPLAYING NO S/S OF APPARENT DISTRESS AT THIS TIME. SATING WELL ON ROOM AIR. RESPIRATIONS ARE EVEN AND UNLABORED. NO S/S OF SOB OR RESPIRATORY DISTRESS. SAFETY PRECAUTIONS IMPLEMENTED, BED IN LOCKED, LOW POSITION WITH TWO SIDE RAILS UP. CALL LIGHT WITHIN EASY REACH. WILL CONTINUE TO MONITOR.
[2016-10-22 08:08] VITALS: BP 137/63
[2016-10-22] MEDS: BLOOD SUGAR DIAGNOSTIC 1 EACH STRIP IN SCH ×4 (08:45→21:30)
[2016-10-22] MEDS: ATORVASTATIN 10 MG TABLET PO SCH (08:55)
[2016-10-22] MEDS: NICOTINE PATCH (21MG) 21 MG PATCH.TD24 TD SCH (08:56)
[2016-10-22] MEDS: PAROXETINE HCL 20 MG TABLET PO SCH (08:56)
[2016-10-22] MEDS: METFORMIN 500 MG TABLET PO SCH ×2 (08:56→16:15)
[2016-10-22] MEDS: LEVOTHYROXINE SODIUM 100 MCG TABLET PO SCH (08:56)
[2016-10-22] MEDS: ASPIRIN EC 81 MG TABLET.DR PO SCH (08:56)
[2016-10-22] MEDS: ARIPIPRAZOLE 5 MG TABLET PO SCH (08:56)
[2016-10-22] MEDS: INSULIN REGULAR, HUMAN 100 UNIT/ML 3 ML VIAL SQ PRN ×3 (09:02→21:31)
[2016-10-22] MEDS: DIVALPROEX SODIUM 250 MG TABLET.DR PO SCH ×4 (09:06→21:33)
[2016-10-22] MEDS: hydrOXYzine PAMOATE 25 MG CAPSULE PO PRN (10:59)
[2016-10-22 16:00] VITALS: BP 105/60
[2016-10-22 20:00] VITALS: BP 134/70
[2016-10-22] MEDS: QUETIAPINE FUMARATE 100 MG TABLET PO SCH (21:30)
--- NOTE | 2016-10-23 06:40 | NUR ---
RN GPS NOTE PT .REMAINED IN STABLE CONDITION RESTING IN HER BED ,NO ACUTE DISTRESS NOTED ATTENDED ALL NEEDS AND ANTICIPATED , DENIES SI/ HI AT THIS TIME,WILL ENDORSE TO NEXT SHIFT FOR CONTINUITY OF CARE
[2016-10-23] MEDS: BLOOD SUGAR DIAGNOSTIC 1 EACH STRIP IN SCH ×4 (07:50→21:35)
[2016-10-23 08:00] VITALS: BP 116/62
[2016-10-23] MEDS: ASPIRIN EC 81 MG TABLET.DR PO SCH (08:25)
[2016-10-23] MEDS: LEVOTHYROXINE SODIUM 100 MCG TABLET PO SCH (08:25)
[2016-10-23] MEDS: ATORVASTATIN 10 MG TABLET PO SCH (08:25)
[2016-10-23] MEDS: ARIPIPRAZOLE 5 MG TABLET PO SCH (08:25)
[2016-10-23] MEDS: PAROXETINE HCL 20 MG TABLET PO SCH (08:25)
[2016-10-23] MEDS: METFORMIN 500 MG TABLET PO SCH ×2 (08:25→16:33)
[2016-10-23] MEDS: DIVALPROEX SODIUM 250 MG TABLET.DR PO SCH ×4 (08:32→21:09)
[2016-10-23] MEDS: NICOTINE PATCH (21MG) 21 MG PATCH.TD24 TD SCH (08:33)
--- NOTE | 2016-10-23 14:29 | NUR ---
SW received a voicemail from pt's daughter, Olivia, who stated that she agrees with her mother discharging to [facility] [address] [place] [id number]
[2016-10-23 16:27] VITALS: BP 122/59
--- NOTE | 2016-10-23 19:30 | NUR ---
GPS RN NOTE, RECEIVED PATIENT AWAKE AND IN BED, NO S/S OR COMPLAINTS OF PAIN AT THIS TIME. PATIENT IS DISPLAYING NO S/S OF APPARENT DISTRESS AT THIS TIME. PATIENT BREATHING IS UNLABORED WITH EQUAL RISE AND FALL OF THE CHEST. PATIENT IS ALERT AND ORIENTED X 1 ON ROOM AIR WITH A SPO2 99%. PATIENT COMPLAINT WITH MEDICATION, ANXIOUS, CONFUSED AT TIMES, ISOLATES IN ROOM, AND NEEDS REORIENTATION. PATIENT DENIES SUICIDE AND HOMICIDAL IDEATIONS AT THIS TIME. PATIENT ASSISTED WITH TURNING AND REPOSITIONING Q2HR AND PRN FOR COMFORT AND CIRCULATION. PATIENT HAS NO NEEDS AT THIS TIME. PATIENT EDUCATED ON THE USE OF THE CALL SELF. PATIENT BED SIDE RAILS UP X2 FOR SAFETY, BED IS LOCKED AND LOW WILL CONTINUE TO MONITOR AND MAINTAIN SAFETY.
[2016-10-23 20:00] VITALS: BP 124/49
[2016-10-23] MEDS: QUETIAPINE FUMARATE 100 MG TABLET PO SCH (21:09)
--- NOTE | 2016-10-23 21:35 | NUR ---
GPS RN NOTE, PERFORMED ACCU CHECK ON PATIENT WITH A BLOOD SUGAR RESULT OF 94. GAVE NO INSULIN PER SLIDING SCALE. WILL CONTINUE TO MONITOR THIS PATIENT.
[2016-10-24] MEDS: hydrOXYzine PAMOATE 25 MG CAPSULE PO PRN ×2 (01:23→10:32)
--- NOTE | 2016-10-24 01:23 | NUR ---
GPS RN NOTE, PATIENT HAS A COMPLAINT OF FEELING ANXIOUS AND WOULD LIKE MEDICATION TO HELP CALM HER DOWN SO SHE CAN SLEEP. PATIENT VITAL SIGNS ARE STABLE. GAVE VISTARIL 25MG PO Q8HR PRN ORDERED. WILL REASSESS FOR ANXIETY AND I WILL CONTINUE TO MONITOR THIS PATIENT.
[2016-10-24] MEDS: BLOOD SUGAR DIAGNOSTIC 1 EACH STRIP IN SCH ×2 (07:38→11:53)
[2016-10-24 08:00] VITALS: BP 120/51
[2016-10-24] MEDS: ASPIRIN EC 81 MG TABLET.DR PO SCH (08:38)
[2016-10-24] MEDS: ARIPIPRAZOLE 5 MG TABLET PO SCH (08:38)
[2016-10-24] MEDS: NICOTINE PATCH (21MG) 21 MG PATCH.TD24 TD SCH (08:38)
[2016-10-24] MEDS: ATORVASTATIN 10 MG TABLET PO SCH (08:38)
[2016-10-24] MEDS: DIVALPROEX SODIUM 250 MG TABLET.DR PO SCH (08:39)
[2016-10-24] MEDS: LEVOTHYROXINE SODIUM 100 MCG TABLET PO SCH (08:39)
[2016-10-24] MEDS: PAROXETINE HCL 20 MG TABLET PO SCH (08:39)
[2016-10-24] MEDS: METFORMIN 500 MG TABLET PO SCH (08:39)
[2016-10-24] MEDS: ACETAMINOPHEN 325 MG TABLET PO PRN (09:05)
--- NOTE | 2016-10-24 09:05 | NUR ---
RN-CO: DR Trujillo gave an order to discontinue hold and discharge patient today. Noted. Patient remain compliant to her medications,redirectable. Denied suicidal and homicidal ideation, denied auditory and visual hallllucinations.
--- NOTE | 2016-10-24 10:35 | NUR ---
PT SEVERELY ANXIOUS ABOUT DISCHARGE. USED POSITIVE REINFORCEMENT THAT IT IS A GOOD STEP FORWARD IN HER RECOVERY PROCESS TO BE DISCHARGING AND EXPLAINED TO HER THAT HER FAMILY WANTS HER TO TRANSFER TO [facility] (FACILITY CHOSEN BY THEM, PER SW). SHE STATES SHE DOES NOT WANT TO LEAVE, ANXIOUS AND CRYING. GAVE ATARAX FOR ANXIETY. CHARGE NURSE AND CASE MGMT AWARE.
--- NOTE | 2016-10-24 13:34 | NUR ---
PT DC TO [facility] VIA AMBULANCE. PT'S DAUGHTER ACCOMPANIED HER ON DISCHARGE AND PT AGREED TO DC. ALL BELONGINGS GIVEN TO HER ON DC. ID AND CARDS GIVEN TO THE DAUGHTER UPON REQUEST. DENTURES BOTH UP AND LOWER IN PLACE IN THE PATIENT ON DC. REPORT GIVEN TO AYAN AT [facility]. DR. LAMAR KHANNA AND DR. HUMPHREY RECONCILED MEDICATIONS AND FINAL MED LIST SENT WITH MEDICAL TRANSPORT. PT LEFT THE UNIT AT APPROXIMATELY 1230.
--- NOTE | 2016-10-24 14:16 | NUR ---
Discharge note: Pt. was discharged to [facility] [address] [place] [address] via med response ambulance. STEF notified Olivia, the daughter [phone] via voicemail yesterday. Marcela had previously agreed for the patient to be released to [facility]. Pt. will follow up with Dr. Trujillo at the facility on October 27 at 10:30AM to discuss medication dependency. Pt. is a smoker, hence, has been provided information to [employer] with [facility] on Thursday10/26/16 at 8:00 PM ET by calling [phone] PIN: [id number] Pt. has been provided this information and agreed to attend. STEF signed discharge paperwork and RN reported discharge instructions to the accepting facility. Pt. was calm and cooperative, denied suicidal/homicidal ideations and hallucinations.
== END 2016-10-24 12:30 | DRG 885 ==
LOC: ER 11:23 → GPS 13:09
PROVIDERS: ADMIT Psychiatry & Neurology Psychiatry; ATTEND Psychiatry & Neurology Psychiatry
DX: F32.3 Major depressive disorder, single episode, severe with psychotic features (principal); E44.1 Mild protein-calorie malnutrition; I10 Essential (primary) hypertension; E78.5 Hyperlipidemia, unspecified; E11.9 Type 2 diabetes mellitus without complications; E03.9 Hypothyroidism, unspecified; Z73.6 Limitation of activities due to disability; E78.00 Pure hypercholesterolemia, unspecified; F03.90 Unspecified dementia, unspecified severity, without behavioral disturbance, psychotic disturbance, mood disturbance, and anxiety
CPT/HCPCS: 36415; 80048-TC; 80053-TC; 80164-TC; 81000-TC; 82962-TC; 83090; 83735-TC; 83921; 84100-TC; 84439-TC; 84443-TC; 85025-TC; 87081-TC; A4606; G0480; J1815; J2060; Q0177; Z7610

== ENCOUNTER 2017-06-24 17:02 | Inpatient (IN) | payer MEDICARE, MEDICAID ==
[~2017-06-24] VITALS: Ht 162.6 cm; Wt 78.0 kg
[~2017-06-24 17:02] MED LIST changes: -ALPR0.5T8 PO; +ASPI-1152 PO; -ASPI-991 PO; +ERGO500014 PO; -ERGO50003 PO; -FLUO-120 PO; -VENL150C2 PO
[2017-06-24 18:13] LABS: BASOPHILS % (AUTO) 0.6 % (0.0-2.0); EOSINOPHILS # (AUTO) 0.1 /CMM (0.0-0.7); EOSINOPHILS % (AUTO) 0.8 % (0.0-6.0); HEMATOCRIT 33 % (33-45); HEMOGLOBIN 11.5 g/dL (11.5-14.8); LYMPHOCYTES # (AUTO) 2.7 /CMM (0.8-4.8); LYMPHOCYTES % (AUTO) 34.6 % (20.0-44.0); MEAN CORPUSCULAR HEMOGLOBIN 31 PG (26.0-33.0); MEAN CORPUSCULAR HGB CONC 35 g/dl (31.0-36.0); MEAN CORPUSCULAR VOLUME 90 fL (82-100); MONOCYTES # (AUTO) 0.6 /CMM (0.1-1.30); MONOCYTES % (AUTO) 7.1 % (2.0-12.0); NEUTROPHILS # (AUTO) 4.4 /CMM (1.8-8.9); NEUTROPHILS % (AUTO) 56.9 % (43.0-81.0); PLATELET COUNT (AUTO) 335 /CMM (150-450); RDW COEFFICIENT OF VARIATION 13.5 (11.5-15.0); WHITE BLOOD COUNT (AUTO) 7.8 K/uL (4.3-11.0)
[2017-06-24 18:25] LABS: CALCIUM, SERUM 9.1 mg/dL (8.5-10.1); CREATININE 1.1 mg/dL (0.6-1.3); POTASSIUM 4.4 mmol/L (3.5-5.1)
[2017-06-24 18:31] LABS: ALBUMIN 3.2 g/dL (3.4-5.0); BILIRUBIN,DIRECT 0.1 mg/dL (0.0-0.2); BILIRUBIN,TOTAL 0.2 mg/dL (0.2-1.0); TOTAL PROTEIN, SERUM 7.2 g/dL (6.4-8.2)
[2017-06-24 18:32] LABS: APPEARANCE,URINE Clear (CLEAR); BILIRUBIN,URINE Negative (NEGATIVE); BLOOD, URINE Negative Ery/uL (NEGATIVE); COLOR,URINE Yellow (YELLOW); KETONES,URINE Trace (NEGATIVE); LEUKOCYTE ESTERASE ,URINE Negative (NEGATIVE); NITRITE, URINE Negative (NEGATIVE); PROTEIN,URINE Negative (NEGATIVE); UGLUCOSE Negative (NEGATIVE); UROBILINOGEN,URINE 0.2 EU/dL (0.2)
[2017-06-24] MEDS ORDERED: QUET100T PO (18:46)
[2017-06-24] MEDS ORDERED: ACET325T53 PO (18:46)
[2017-06-24] MEDS ORDERED: DIVA500T2 PO (18:46)
[2017-06-24] MEDS ORDERED: HYDR25CA PO (18:46)
[2017-06-24] MEDS ORDERED: MAG30ORA PO (18:46)
[2017-06-24] MEDS ORDERED: MAGN400O6 PO (18:46)
[2017-06-24] MEDS ORDERED: QUET25TA PO (18:46)
[2017-06-24] MEDS ORDERED: CRAN425C6 PO (18:46)
[2017-06-24] MEDS ORDERED: VENL37.55 PO (18:46)
[2017-06-24 20:24] VITALS: BP 139/75
[2017-06-24] MEDS ORDERED: MAGNESIUM HYDROXIDE 30 ML UDC PO PRN ×2 (20:30→21:00)
[2017-06-24] MEDS ORDERED: MAG HYDROX/AL HYDROX/SIMETH 30 ML UDC PO PRN ×2 (20:30→21:00)
[2017-06-24] MEDS ORDERED: ACETAMINOPHEN 325 MG TABLET PO PRN (20:30)
[2017-06-24] MEDS: ATORVASTATIN 10 MG TABLET PO SCH (21:45)
[2017-06-24] MEDS: ZOLPIDEM TARTRATE 5 MG TABLET PO PRN (21:46)
[2017-06-25] MEDS: clonazePAM 0.5 MG TABLET PO PRN ×4 (01:49→23:49)
[2017-06-25] MEDS: ACETAMINOPHEN 325 MG TABLET PO PRN (03:17)
[2017-06-25 08:00] VITALS: BP 116/67
[2017-06-25] MEDS: METFORMIN 500 MG TABLET PO SCH ×2 (08:53→17:21)
[2017-06-25] MEDS: LEVOTHYROXINE SODIUM 100 MCG TABLET PO SCH (08:53)
[2017-06-25] MEDS: ASPIRIN EC 81 MG TABLET.DR PO SCH (08:55)
[2017-06-25] MEDS ORDERED: clonazePAM 0.5 MG TABLET PO ONE (11:30)
[2017-06-25] MEDS: BENZTROPINE MESYLATE (1 MG) 1 MG TABLET PO SCH ×2 (12:20→17:21)
[2017-06-25] MEDS: ARIPIPRAZOLE 5 MG TABLET PO SCH ×2 (12:20→17:23)
[2017-06-25] MEDS: Fluoxetine 10 mg capsule PO SCH (12:21)
[2017-06-25] MEDS: clonazePAM 0.5 MG TABLET PO SCH ×2 (14:16→17:51)
[2017-06-25 16:00] VITALS: BP 107/57
[2017-06-25 20:00] VITALS: BP 108/56
[2017-06-25] MEDS: ZOLPIDEM TARTRATE 5 MG TABLET PO PRN (21:02)
[2017-06-25] MEDS: ATORVASTATIN 10 MG TABLET PO SCH (21:02)
[2017-06-26] MEDS: LEVOTHYROXINE SODIUM 100 MCG TABLET PO SCH (08:02)
[2017-06-26] MEDS: BENZTROPINE MESYLATE (1 MG) 1 MG TABLET PO SCH ×3 (08:02→17:17)
[2017-06-26] MEDS: clonazePAM 0.5 MG TABLET PO SCH ×3 (08:02→17:16)
[2017-06-26] MEDS: ASPIRIN EC 81 MG TABLET.DR PO SCH (08:02)
[2017-06-26] MEDS: METFORMIN 500 MG TABLET PO SCH ×2 (08:02→17:20)
[2017-06-26] MEDS: ARIPIPRAZOLE 5 MG TABLET PO SCH ×3 (08:03→17:17)
[2017-06-26] MEDS: Fluoxetine 10 mg capsule PO SCH (08:04)
[2017-06-26 08:26] VITALS: BP 146/63
[2017-06-26] MEDS: busPIRone 5 MG TABLET PO SCH ×2 (11:37→17:17)
[2017-06-26] MEDS: clonazePAM 0.5 MG TABLET PO PRN (13:56)
[2017-06-26 15:20] VITALS: BP 117/59
[2017-06-26 20:00] VITALS: BP 129/54
[2017-06-26] MEDS: ATORVASTATIN 10 MG TABLET PO SCH (21:40)
[2017-06-26] MEDS: ZOLPIDEM TARTRATE 5 MG TABLET PO PRN (21:40)
[2017-06-27] MEDS: clonazePAM 0.5 MG TABLET PO PRN ×2 (01:40→23:48)
[2017-06-27 08:00] VITALS: BP 150/85
[2017-06-27] MEDS: BENZTROPINE MESYLATE (1 MG) 1 MG TABLET PO SCH ×3 (08:30→16:18)
[2017-06-27] MEDS: LEVOTHYROXINE SODIUM 100 MCG TABLET PO SCH (08:31)
[2017-06-27] MEDS: Fluoxetine 10 mg capsule PO SCH (08:31)
[2017-06-27] MEDS: busPIRone 5 MG TABLET PO SCH ×3 (08:31→16:17)
[2017-06-27] MEDS: ASPIRIN EC 81 MG TABLET.DR PO SCH (08:31)
[2017-06-27] MEDS: METFORMIN 500 MG TABLET PO SCH ×2 (08:31→16:18)
[2017-06-27] MEDS: ARIPIPRAZOLE 5 MG TABLET PO SCH ×3 (08:32→16:18)
[2017-06-27] MEDS: clonazePAM 0.5 MG TABLET PO SCH ×3 (08:32→16:17)
[2017-06-27 16:00] VITALS: BP 116/69
[2017-06-27 20:00] VITALS: BP 124/74
[2017-06-27] MEDS: ATORVASTATIN 10 MG TABLET PO SCH (21:32)
[2017-06-27] MEDS: ZOLPIDEM TARTRATE 5 MG TABLET PO PRN (21:32)
[2017-06-28 08:00] VITALS: BP 143/75
[2017-06-28] MEDS: METFORMIN 500 MG TABLET PO SCH ×2 (08:26→17:06)
[2017-06-28] MEDS: BENZTROPINE MESYLATE (1 MG) 1 MG TABLET PO SCH ×3 (08:27→16:15)
[2017-06-28] MEDS: LEVOTHYROXINE SODIUM 100 MCG TABLET PO SCH (08:27)
[2017-06-28] MEDS: clonazePAM 0.5 MG TABLET PO SCH ×3 (08:27→16:15)
[2017-06-28] MEDS: ASPIRIN EC 81 MG TABLET.DR PO SCH (08:27)
[2017-06-28] MEDS: Fluoxetine 10 mg capsule PO SCH (08:27)
[2017-06-28] MEDS: busPIRone 5 MG TABLET PO SCH ×3 (08:27→16:15)
[2017-06-28] MEDS: ARIPIPRAZOLE 5 MG TABLET PO SCH ×3 (08:27→16:15)
[2017-06-28 16:00] VITALS: BP 144/68
[2017-06-28 20:09] VITALS: BP 144/51
[2017-06-28] MEDS: ATORVASTATIN 10 MG TABLET PO SCH (21:25)
[2017-06-28] MEDS: ZOLPIDEM TARTRATE 5 MG TABLET PO PRN (21:25)
[2017-06-28 23:00] VITALS: BP 128/66
[2017-06-29 08:00] VITALS: BP 150/91
[2017-06-29] MEDS: LEVOTHYROXINE SODIUM 100 MCG TABLET PO SCH (08:24)
[2017-06-29] MEDS: ARIPIPRAZOLE 5 MG TABLET PO SCH ×3 (08:24→16:51)
[2017-06-29] MEDS: clonazePAM 0.5 MG TABLET PO SCH ×3 (08:25→16:51)
[2017-06-29] MEDS: ASPIRIN EC 81 MG TABLET.DR PO SCH (08:25)
[2017-06-29] MEDS: Fluoxetine 10 mg capsule PO SCH (08:25)
[2017-06-29] MEDS: METFORMIN 500 MG TABLET PO SCH ×2 (08:25→17:27)
[2017-06-29] MEDS: BENZTROPINE MESYLATE (1 MG) 1 MG TABLET PO SCH ×3 (08:25→16:51)
[2017-06-29] MEDS: busPIRone 5 MG TABLET PO SCH ×3 (08:26→16:51)
[2017-06-29 16:00] VITALS: BP 119/63
[2017-06-29 19:39] VITALS: BP 115/63
[2017-06-29] MEDS: ATORVASTATIN 10 MG TABLET PO SCH (21:11)
[2017-06-29] MEDS: ZOLPIDEM TARTRATE 5 MG TABLET PO PRN (21:11)
[2017-06-29] MEDS: ACETAMINOPHEN 325 MG TABLET PO PRN (23:03)
[2017-06-30] MEDS: clonazePAM 0.5 MG TABLET PO PRN (00:23)
[2017-06-30] MEDS: LEVOTHYROXINE SODIUM 100 MCG TABLET PO SCH (07:30)
[2017-06-30 08:00] VITALS: BP 132/61
[2017-06-30] MEDS: METFORMIN 500 MG TABLET PO SCH ×2 (08:00→18:25)
[2017-06-30] MEDS: BENZTROPINE MESYLATE (1 MG) 1 MG TABLET PO SCH ×3 (09:54→17:00)
[2017-06-30] MEDS: Fluoxetine 10 mg capsule PO SCH (09:54)
[2017-06-30] MEDS: busPIRone 5 MG TABLET PO SCH ×3 (09:55→17:00)
[2017-06-30] MEDS: ASPIRIN EC 81 MG TABLET.DR PO SCH (09:55)
[2017-06-30] MEDS: ARIPIPRAZOLE 5 MG TABLET PO SCH ×3 (09:55→17:00)
[2017-06-30] MEDS: clonazePAM 0.5 MG TABLET PO SCH ×3 (09:55→17:00)
[2017-06-30 16:00] VITALS: BP 141/72
[2017-06-30 20:00] VITALS: BP 119/50
[2017-06-30] MEDS: ATORVASTATIN 10 MG TABLET PO SCH (21:36)
[2017-06-30] MEDS: ZOLPIDEM TARTRATE 5 MG TABLET PO PRN (22:29)
[2017-06-30 23:21] VITALS: BP 118/67
[2017-07-01] MEDS: LEVOTHYROXINE SODIUM 100 MCG TABLET PO SCH (07:30)
[2017-07-01 08:00] VITALS: BP 140/54
[2017-07-01] MEDS: METFORMIN 500 MG TABLET PO SCH ×2 (08:00→18:22)
[2017-07-01] MEDS ORDERED: Fluoxetine 10 mg capsule PO SCH (09:00)
[2017-07-01] MEDS: ASPIRIN EC 81 MG TABLET.DR PO SCH (09:52)
[2017-07-01] MEDS: ARIPIPRAZOLE 5 MG TABLET PO SCH ×3 (09:52→16:48)
[2017-07-01] MEDS: clonazePAM 0.5 MG TABLET PO SCH ×3 (09:52→16:48)
[2017-07-01] MEDS: busPIRone 5 MG TABLET PO SCH ×3 (09:53→16:48)
[2017-07-01] MEDS: BENZTROPINE MESYLATE (1 MG) 1 MG TABLET PO SCH ×3 (09:56→16:49)
[2017-07-01 16:00] VITALS: BP 153/72
[2017-07-01 20:04] VITALS: BP 138/72
[2017-07-01] MEDS: ATORVASTATIN 10 MG TABLET PO SCH (21:18)
[2017-07-01] MEDS: ZOLPIDEM TARTRATE 5 MG TABLET PO PRN (22:04)
[2017-07-02] MEDS: LEVOTHYROXINE SODIUM 100 MCG TABLET PO SCH (07:47)
[2017-07-02] MEDS: ARIPIPRAZOLE 5 MG TABLET PO SCH ×3 (08:06→17:08)
[2017-07-02] MEDS: clonazePAM 0.5 MG TABLET PO SCH ×3 (08:06→17:07)
[2017-07-02] MEDS: METFORMIN 500 MG TABLET PO SCH ×2 (08:06→17:08)
[2017-07-02] MEDS: ASPIRIN EC 81 MG TABLET.DR PO SCH (08:06)
[2017-07-02] MEDS: BENZTROPINE MESYLATE (1 MG) 1 MG TABLET PO SCH ×3 (08:06→17:07)
[2017-07-02] MEDS: busPIRone 5 MG TABLET PO SCH ×4 (08:06→17:08)
[2017-07-02 08:14] VITALS: BP 136/55
[2017-07-02] MEDS: Fluoxetine 10 mg capsule PO SCH (09:05)
[2017-07-02 20:00] VITALS: BP 108/63
[2017-07-02] MEDS: ZOLPIDEM TARTRATE 5 MG TABLET PO PRN (21:46)
[2017-07-02] MEDS: ATORVASTATIN 10 MG TABLET PO SCH (21:46)
[2017-07-03 08:00] VITALS: BP 129/73
[2017-07-03] MEDS: LEVOTHYROXINE SODIUM 100 MCG TABLET PO SCH (08:25)
[2017-07-03] MEDS: ASPIRIN EC 81 MG TABLET.DR PO SCH (08:25)
[2017-07-03] MEDS: clonazePAM 0.5 MG TABLET PO SCH ×3 (08:25→16:56)
[2017-07-03] MEDS: busPIRone 5 MG TABLET PO SCH ×3 (08:25→16:56)
[2017-07-03] MEDS: METFORMIN 500 MG TABLET PO SCH ×2 (08:26→17:15)
[2017-07-03] MEDS: BENZTROPINE MESYLATE (1 MG) 1 MG TABLET PO SCH ×3 (08:26→16:56)
[2017-07-03] MEDS: ARIPIPRAZOLE 5 MG TABLET PO SCH ×3 (08:26→16:56)
[2017-07-03] MEDS: Fluoxetine 10 mg capsule PO SCH (09:46)
[2017-07-03 16:00] VITALS: BP 119/76
[2017-07-03 20:00] VITALS: BP 145/61
[2017-07-03] MEDS: clonazePAM 0.5 MG TABLET PO PRN (20:32)
[2017-07-03] MEDS: ATORVASTATIN 10 MG TABLET PO SCH (21:43)
[2017-07-04] MEDS: ZOLPIDEM TARTRATE 5 MG TABLET PO PRN ×2 (01:15→21:42)
[2017-07-04] MEDS: LEVOTHYROXINE SODIUM 100 MCG TABLET PO SCH ×2 (07:52→08:40)
[2017-07-04] MEDS: ARIPIPRAZOLE 5 MG TABLET PO SCH ×4 (08:38→16:35)
[2017-07-04 08:39] VITALS: BP 124/73
[2017-07-04] MEDS: ASPIRIN EC 81 MG TABLET.DR PO SCH (08:39)
[2017-07-04] MEDS: Fluoxetine 10 mg capsule PO SCH (08:39)
[2017-07-04] MEDS: clonazePAM 0.5 MG TABLET PO SCH ×3 (08:39→16:34)
[2017-07-04] MEDS: METFORMIN 500 MG TABLET PO SCH ×2 (08:40→17:04)
[2017-07-04] MEDS: BENZTROPINE MESYLATE (1 MG) 1 MG TABLET PO SCH ×3 (08:40→16:34)
[2017-07-04] MEDS: busPIRone 5 MG TABLET PO SCH ×3 (08:40→16:34)
[2017-07-04 16:10] VITALS: BP 123/65
[2017-07-04 20:00] VITALS: BP 120/53
[2017-07-04] MEDS: ATORVASTATIN 10 MG TABLET PO SCH (21:41)
[2017-07-05] MEDS: LEVOTHYROXINE SODIUM 100 MCG TABLET PO SCH (07:30)
[2017-07-05 08:00] VITALS: BP 119/70
[2017-07-05] MEDS: BENZTROPINE MESYLATE (1 MG) 1 MG TABLET PO SCH ×3 (08:43→17:23)
[2017-07-05] MEDS: busPIRone 5 MG TABLET PO SCH ×3 (08:43→17:22)
[2017-07-05] MEDS: Fluoxetine 10 mg capsule PO SCH (08:44)
[2017-07-05] MEDS: METFORMIN 500 MG TABLET PO SCH ×2 (08:44→17:23)
[2017-07-05] MEDS: clonazePAM 0.5 MG TABLET PO SCH ×3 (08:44→17:22)
[2017-07-05] MEDS: ASPIRIN EC 81 MG TABLET.DR PO SCH (08:44)
[2017-07-05] MEDS: ARIPIPRAZOLE 5 MG TABLET PO SCH ×3 (08:45→17:22)
[2017-07-05 15:50] VITALS: BP 120/80
[2017-07-05 20:29] VITALS: BP 122/74
[2017-07-05] MEDS: ATORVASTATIN 10 MG TABLET PO SCH (22:04)
[2017-07-05] MEDS: ZOLPIDEM TARTRATE 5 MG TABLET PO PRN (22:06)
[2017-07-06 08:00] VITALS: BP 133/79
[2017-07-06] MEDS: LEVOTHYROXINE SODIUM 100 MCG TABLET PO SCH (08:43)
[2017-07-06] MEDS: Fluoxetine 10 mg capsule PO SCH (08:43)
[2017-07-06] MEDS: ASPIRIN EC 81 MG TABLET.DR PO SCH (08:44)
[2017-07-06] MEDS: ARIPIPRAZOLE 5 MG TABLET PO SCH ×2 (08:44→12:40)
[2017-07-06] MEDS: busPIRone 5 MG TABLET PO SCH ×2 (08:44→12:40)
[2017-07-06] MEDS: clonazePAM 0.5 MG TABLET PO SCH ×2 (08:45→12:40)
[2017-07-06] MEDS: BENZTROPINE MESYLATE (1 MG) 1 MG TABLET PO SCH ×2 (08:45→12:40)
[2017-07-06] MEDS: METFORMIN 500 MG TABLET PO SCH (08:45)
== END 2017-07-06 14:00 | DRG 885 ==
LOC: ER 17:04 → GPS 19:02
PROVIDERS: ADMIT Psychiatry & Neurology Psychosomatic Medicine; ATTEND Internal Medicine
DX: F29 Unspecified psychosis not due to a substance or known physiological condition (principal); E44.0 Moderate protein-calorie malnutrition; E88.09 Other disorders of plasma-protein metabolism, not elsewhere classified; E11.9 Type 2 diabetes mellitus without complications; F41.9 Anxiety disorder, unspecified; E03.9 Hypothyroidism, unspecified; E66.9 Obesity, unspecified; E78.5 Hyperlipidemia, unspecified; F17.210 Nicotine dependence, cigarettes, uncomplicated; I10 Essential (primary) hypertension; Z79.84 Long term (current) use of oral hypoglycemic drugs; Z90.710 Acquired absence of both cervix and uterus; F32.9 Major depressive disorder, single episode, unspecified; Z73.6 Limitation of activities due to disability; R74.0 Nonspecific elevation of levels of transaminase and lactic acid dehydrogenase [LDH]; Z68.29 Body mass index [BMI] 29.0-29.9, adult; F43.10 Post-traumatic stress disorder, unspecified; F19.90 Other psychoactive substance use, unspecified, uncomplicated
CPT/HCPCS: 36415; 80048-TC; 80076-TC; 80305; 81000-TC; 82962-TC; 85025-TC; 87081-TC; A4606; Z7610

== ENCOUNTER 2019-02-12 10:31 | Emergency (ER) | payer MEDICARE, MEDICAID ==
[~2019-02-12] VITALS: Ht 160 cm; Wt 98.0 kg
[~2019-02-12 10:31] MED LIST changes: +ACET325T53 PO; -AMLO1TAB39 PO; -BLOO-140 IN; -CALC500T29 PO; -CEPH-570 PO; -ERGO500014 PO; +MAG30ORA PO; +MAGN400O6 PO; +METF-440 PO; -METF500T4 PO
--- NOTE | 2019-02-12 10:51 | NUR ---
MARELY, C/O R KNEE AND SACRAL PAIN S/P GLF, -KO "WALKING TO THE RESTROOM THEN LOST BALANCE AND FELL FORWARD", TO ER BED 3, HOOKED TO MONITOR, CHANGED TO HOSPITAL GOWN, PROVIDED W WARM BLANKET, AWAITING MD SIMMONS
[2019-02-12] MEDS ORDERED: CLON0.5T PO (11:04)
[2019-02-12] MEDS ORDERED: IBUP-1953 PO (11:04)
[2019-02-12] MEDS ORDERED: ARIP15TA3 PO (11:04)
[2019-02-12] MEDS ORDERED: MELA1TAB9 PO (11:04)
[2019-02-12] MEDS ORDERED: BENZ0.5T43 PO (11:04)
[2019-02-12] MEDS ORDERED: ARIP5TAB10 PO (11:04)
[2019-02-12] MEDS ORDERED: LEVO88TA5 PO (11:04)
[2019-02-12] MEDS ORDERED: BUSP10TA35 PO (11:04)
[2019-02-12] MEDS ORDERED: ZOLP5TAB2 PO (11:04)
[2019-02-12] MEDS ORDERED: DOCU-141 PO (11:04)
[2019-02-12] MEDS ORDERED: OMEG-88 PO (11:04)
[2019-02-12] MEDS ORDERED: FLUO40CA8 PO (11:04)
--- NOTE | 2019-02-12 11:30 | NUR ---
DR SHEPARD AT BEDSIDE
[2019-02-12] MEDS ORDERED: HYDROCODONE/APAP 5/325MG 1 EACH TABLET ONE (12:10)
[2019-02-12] MEDS ORDERED: HYDROCODONE/APAP 5/325MG 1 EACH TABLET PO ONE (12:30)
--- NOTE | 2019-02-12 12:36 | NUR ---
BOX BLANK MACHINE OPERATOR HELPER AT BEDSIDE
--- NOTE | 2019-02-12 12:57 | NUR ---
BACK FROM CT SCAN
--- NOTE | 2019-02-12 14:53 | NUR ---
ETA [id number] TRIP#[id number]
--- NOTE | 2019-02-12 16:24 | NUR ---
REPORT GIVEN TO JOE MONDRAGON [facility]
--- NOTE | 2019-02-12 16:30 | NUR ---
Patient picked up by [facility] in stable condition. patient will be transferred back to [facility]. Written and verbal after care instructions given. Patient verbalizes understanding of instruction.
[2019-02-12 16:36] VITALS: BP 156/51
== END 2019-02-12 16:37 ==
LOC: ER 10:34
DX: S00.83XA Contusion of other part of head, initial encounter (principal); M25.561 Pain in right knee; I10 Essential (primary) hypertension; E11.9 Type 2 diabetes mellitus without complications; F32.9 Major depressive disorder, single episode, unspecified; F41.9 Anxiety disorder, unspecified; E03.9 Hypothyroidism, unspecified; E78.00 Pure hypercholesterolemia, unspecified; F17.200 Nicotine dependence, unspecified, uncomplicated; Z79.899 Other long term (current) drug therapy; Z79.84 Long term (current) use of oral hypoglycemic drugs; Z79.82 Long term (current) use of aspirin; W18.39XA Other fall on same level, initial encounter; Y93.89 Activity, other specified; Y92.091 Bathroom in other non-institutional residence as the place of occurrence of the external cause; Y99.8 Other external cause status
CPT/HCPCS: 70450-TC; 72190-TC; 72220-TC; 73564-TC

== ENCOUNTER 2019-12-27 23:54 | Emergency (ER) | payer MEDICARE, OTHER ==
[~2019-12-27] VITALS: Ht 162.6 cm; Wt 81.6 kg
[~2019-12-27 23:54] MED LIST changes: +ARIP15TA3 PO; +ARIP5TAB10 PO; -ASPI-1152 PO; +ASPI-1420 PO; +BENZ0.5T43 PO; +BUSP10TA35 PO; +CLON0.5T PO; +DOCU-141 PO; +FLUO40CA8 PO; +IBUP-1953 PO; -LEVO100T9 PO; +LEVO88TA5 PO; +MELA1TAB9 PO; +OMEG-88 PO; +ZOLP5TAB2 PO
[2019-12-28] MEDS ORDERED: IV NS 0.9% 500 ML BAG IV ONE
--- NOTE | 2019-12-28 00:01 | NUR ---
PT AAOX2, BIBPA FROM [facility]. UPON ASSESSMENT PT IS BAHAMIAN SPEAKING C/O L FLANK PAIN. PT PLACED IN BED 6 ON MONITOR AND PULSE OX. MD AT BEDSIDE FOR EVAL. AWAITING ORDERS. NO SKIN ISSUES NOTED, NO TRAUMA, VSS.
--- NOTE | 2019-12-28 00:05 | NUR ---
PHLIBOTOMIST AT BEDSIDE FOR LABS
--- NOTE | 2019-12-28 00:17 | NUR ---
PT TAKEN TO RADIOLOGY FOR CT
[2019-12-28 00:24] LABS: BASOPHILS % (AUTO) 0.5 % (0.0-2.0); EOSINOPHILS % (AUTO) 1.5 % (0.0-6.0); HEMATOCRIT 38 % (33-45); HEMOGLOBIN 12.4 g/dL (11.5-14.8); LYMPHOCYTES # (AUTO) 3.7 /CMM (0.8-4.8); LYMPHOCYTES % (AUTO) 42.7 % (20.0-44.0); MEAN CORPUSCULAR HGB CONC 32 g/dl (31.0-36.0); MEAN CORPUSCULAR VOLUME 92 fL (82-100); MONOCYTES # (AUTO) 0.5 /CMM (0.1-1.30); MONOCYTES % (AUTO) 5.5 % (2.0-12.0); NEUTROPHILS # (AUTO) 4.3 /CMM (1.8-8.9); NEUTROPHILS % (AUTO) 49.8 % (43.0-81.0); PLATELET COUNT (AUTO) 259 /CMM (150-450); RED BLOOD CELL COUNT(AUTO) 4.17 MIL/uL (4.0-5.2); WHITE BLOOD COUNT (AUTO) 8.7 K/uL (4.3-11.0)
[2019-12-28 00:33] LABS: ALANINE AMINOTRANSFERASE 11 U/L (12-78); ALBUMIN 3.5 g/dL (3.4-5.0); ALKALINE PHOSPHATASE 58 U/L (46-116); ASPARTATE AMINOTRANSFERASE 10 U/L (15-37); BILIRUBIN,DIRECT 0.1 mg/dL (0.0-0.2); BILIRUBIN,TOTAL 0.4 mg/dL (0.2-1.0); CARBON DIOXIDE 27 mmol/L (21-32); CHLORIDE 104 mmol/L (98-107); GLUCOSE 97 mg/dL (74-106); SODIUM SERUM 142 mmol/L (136-145); TOTAL PROTEIN, SERUM 7.7 g/dL (6.4-8.2); UREA NITROGEN, BLOOD 16 mg/dL (7-18)
--- NOTE | 2019-12-28 01:00 | NUR ---
URINE COLLECTED AND SENT TO LAB
[2019-12-28 01:18] LABS: APPEARANCE,URINE SL CLOUDY (CLEAR); BILIRUBIN,URINE NEGATIVE (NEGATIVE); BLOOD, URINE TRACE-INTA Ery/uL (NEGATIVE); COLOR,URINE YELLOW (YELLOW); KETONES,URINE NEGATIVE (NEGATIVE); LEUKOCYTE ESTERASE ,URINE TRACE (NEGATIVE); NITRITE, URINE POSITIVE (NEGATIVE); PROTEIN,URINE NEGATIVE (NEGATIVE); UGLUCOSE NEGATIVE (NEGATIVE); UROBILINOGEN,URINE 0.2 EU/dL (0.2)
--- NOTE | 2019-12-28 01:18 | NUR ---
REPORT GIVEN TO [facility]
[2019-12-28 01:28] LABS: BACTERIA,URINE Many /HPF (None Seen); SQUAMOUS EPITHELIAL CELL,UR Few /HPF (None Seen); WBC,URINE 21-50 /HPF (0-3)
--- NOTE | 2019-12-28 01:55 | NUR ---
[facility] [id number]
[2019-12-28] MEDS ORDERED: HYDROCODONE/APAP 5/325MG TABLET ONE (04:09)
[2019-12-28] MEDS ORDERED: HYDROCODONE/APAP 5/325MG TABLET PO ONE (04:30)
--- NOTE | 2019-12-28 04:46 | NUR ---
REPORT GIVEN TO EMS. PT STABLE FOR TRANSFER
--- NOTE | 2019-12-28 04:46 | NUR ---
Patient discharged to home in stable condition via ambulance. Written and verbal after care instructions given. Patient verbalizes understanding of instruction.
[2019-12-28 04:47] VITALS: BP 165/81
== END 2019-12-28 04:47 ==
LOC: ER 23:55
DX: R10.9 Unspecified abdominal pain (principal); I10 Essential (primary) hypertension; E11.9 Type 2 diabetes mellitus without complications; E03.9 Hypothyroidism, unspecified; E78.00 Pure hypercholesterolemia, unspecified; Z79.82 Long term (current) use of aspirin; Z79.84 Long term (current) use of oral hypoglycemic drugs; Z79.899 Other long term (current) drug therapy
CPT/HCPCS: 36415; 74176; 80048; 80076; 81001; 85025; 87077; 87086; 87186; 99284; J7030; J7040; 81000-TC

== ENCOUNTER 2024-05-23 12:48 | Inpatient (IN) | payer MEDICARE, OTHER ==
[~2024-05-23] VITALS: Ht 162.6 cm; Wt 66.2 kg
[~2024-05-23 12:48] MED LIST changes: +MELA1TAB47 PO; -MELA1TAB9 PO
[2024-05-23 13:32] LABS: BASOPHILS % (AUTO) 0.6 % (0.0-2.0); EOSINOPHILS # (AUTO) 0.1 K/uL (0.0-0.7); HEMATOCRIT 34 % (33-45); HEMOGLOBIN 10.9 g/dL (11.5-14.8); LYMPHOCYTES # (AUTO) 2.9 K/uL (0.8-4.8); LYMPHOCYTES % (AUTO) 43.2 % (20.0-44.0); MEAN CORPUSCULAR HEMOGLOBIN 30 PG (26.0-33.0); MEAN CORPUSCULAR HGB CONC 33 g/dl (31.0-36.0); MEAN CORPUSCULAR VOLUME 93 fL (82-100); MONOCYTES # (AUTO) 0.4 K/uL (0.1-1.30); MONOCYTES % (AUTO) 5.4 % (2.0-12.0); NEUTROPHILS # (AUTO) 3.3 K/uL (1.8-8.9); NEUTROPHILS % (AUTO) 48.8 % (43.0-81.0); PLATELET COUNT (AUTO) 273 K/uL (150-450); RED BLOOD CELL COUNT(AUTO) 3.58 MIL/uL (4.0-5.2); RED CELL DISTRIBUTION WIDTH 15.2 % (11.5-15.0); WHITE BLOOD COUNT (AUTO) 6.7 K/uL (4.3-11.0)
[2024-05-23 13:37] LABS: BILIRUBIN,DIRECT 0.2 mg/dL (0.0-0.2); BILIRUBIN,TOTAL 0.5 mg/dL (0.2-1.0); CALCIUM, SERUM 8.3 mg/dL (8.5-10.1); CREATININE 1.1 mg/dL (0.6-1.3); POTASSIUM 4.1 mmol/L (3.5-5.1); TOTAL PROTEIN, SERUM 6.7 g/dL (6.4-8.2)
[2024-05-23 13:38] LABS: PARTIAL THROMBOPLASTIN TIME 20.7 SEC (24.3-34.3); PROTHROMBIN TIME 10.6 SECS (9.2-11.1)
[2024-05-23] MEDS ORDERED: POLY15DR31 EACHEYE (13:57)
[2024-05-23] MEDS ORDERED: CRAN3875 PO (13:57)
[2024-05-23] MEDS ORDERED: AMIN30LI2 PO (13:57)
[2024-05-23] MEDS ORDERED: MELA5TAB PO (13:57)
[2024-05-23] MEDS ORDERED: ACET-637 PO (13:57)
[2024-05-23] MEDS ORDERED: EYEL1KIT TP (13:57)
[2024-05-23] MEDS ORDERED: BUSP7.5T7 PO (13:57)
[2024-05-23] MEDS ORDERED: DEXT38GE12 PO (13:57)
[2024-05-23] MEDS ORDERED: GLUC1KIT IM (13:57)
[2024-05-23] MEDS ORDERED: Z GUARD REMEDY 4 OZ OINT TP PRN (15:30)
[2024-05-23] MEDS ORDERED: ACETAMINOPHEN 325 MG TABLET PO PRN ×2 (15:30)
[2024-05-23] MEDS ORDERED: ONDANSETRON HCL/PF 4 MG/2 ML VIAL IVP PRN (15:30)
[2024-05-23] MEDS ORDERED: MAG HYDROX/AL HYDROX/SIMETH 30 ML UDC PO PRN (15:30)
[2024-05-23] MEDS ORDERED: DEXTROSE 50%-WATER 50 ML DISP.SYRIN IV PRN (15:30)
[2024-05-23] MEDS ORDERED: ZOLPIDEM TARTRATE 5 MG TABLET PO PRN (15:30)
[2024-05-23] MEDS ORDERED: MAGNESIUM HYDROXIDE 30 ML UDC PO PRN (15:30)
[2024-05-23 17:33] VITALS: BP 122/59; TEMP 98; O2SAT 98
[2024-05-23] MEDS: IV NS 0.9% 1,000 ML IV PRN (17:35)
[2024-05-23] MEDS: busPIRone 5 MG TABLET PO SCH (17:35)
[2024-05-23] MEDS: ARIPIPRAZOLE 5 MG TABLET PO SCH ×2 (17:35→21:27)
[2024-05-23] MEDS: BENZTROPINE MESYLATE (1 MG) 1 MG TABLET PO SCH (17:36)
[2024-05-23] MEDS: clonazePAM 0.5 MG TABLET PO SCH (17:36)
[2024-05-23] MEDS: BLOOD SUGAR DIAGNOSTIC 1 EACH STRIP VI SCH (18:01)
[2024-05-23] MEDS: INSULIN REGULAR, HUMAN 100 UNIT/ML 3 ML VIAL SQ PRN (18:01)
[2024-05-23 20:10] VITALS: BP 162/65; TEMP 98.4; O2SAT 96
[2024-05-23] MEDS: *INSULIN REGULAR(HUMULIN R)HUM 100 UNIT/ML VIAL SQ PRN (22:13)
[2024-05-24 04:44] VITALS: BP 144/60; TEMP 98.4; O2SAT 96
[2024-05-24 07:04] LABS: BASOPHILS % (AUTO) 0.4 % (0.0-2.0); EOSINOPHILS # (AUTO) 0.1 K/uL (0.0-0.7); EOSINOPHILS % (AUTO) 2.2 % (0.0-6.0); HEMATOCRIT 31 % (33-45); HEMOGLOBIN 10.1 g/dL (11.5-14.8); LYMPHOCYTES # (AUTO) 2.1 K/uL (0.8-4.8); MEAN CORPUSCULAR HEMOGLOBIN 30 PG (26.0-33.0); MEAN CORPUSCULAR HGB CONC 33 g/dl (31.0-36.0); MEAN CORPUSCULAR VOLUME 91 fL (82-100); MONOCYTES # (AUTO) 0.3 K/uL (0.1-1.30); MONOCYTES % (AUTO) 5.6 % (2.0-12.0); NEUTROPHILS # (AUTO) 3.4 K/uL (1.8-8.9); NEUTROPHILS % (AUTO) 56.8 % (43.0-81.0); PLATELET COUNT (AUTO) 244 K/uL (150-450); RED BLOOD CELL COUNT(AUTO) 3.38 MIL/uL (4.0-5.2); RED CELL DISTRIBUTION WIDTH 15.2 % (11.5-15.0)
[2024-05-24 07:26] LABS: CALCIUM, SERUM 8.3 mg/dL (8.5-10.1); CREATININE 0.7 mg/dL (0.6-1.3); MAGNESIUM 1.8 mg/dL (1.8-2.4); PHOSPHORUS 3.5 mg/dL (2.5-4.9); POTASSIUM 3.9 mmol/L (3.5-5.1)
[2024-05-24] MEDS: FLUOXETINE HCL 20 MG CAPSULE PO SCH (08:48)
[2024-05-24] MEDS: PANTOPRAZOLE 40 MG VIAL IV SCH (08:49)
[2024-05-24] MEDS: LEVOTHYROXINE SODIUM 88 MCG TABLET PO SCH (08:49)
[2024-05-24] MEDS: DOCUSATE SODIUM 100 MG CAPSULE PO SCH (08:49)
[2024-05-24 20:00] VITALS: BP 104/87; TEMP 98; O2SAT 100
[2024-05-25 04:00] VITALS: BP 126/81; TEMP 98.5; O2SAT 100
[2024-05-25 06:31] LABS: CALCIUM, SERUM 8.1 mg/dL (8.5-10.1); CREATININE 0.7 mg/dL (0.6-1.3); POTASSIUM 4.1 mmol/L (3.5-5.1)
[2024-05-25 08:00] VITALS: BP 107/96; TEMP 97.7; O2SAT 92
[2024-05-25] MEDS: PANTOPRAZOLE 40 MG TABLET.DR PO SCH (09:00)
[2024-05-25 09:05] LABS: BASOPHILS % (AUTO) 0.4 % (0.0-2.0); EOSINOPHILS # (AUTO) 0.1 K/uL (0.0-0.7); HEMATOCRIT 33 % (33-45); HEMOGLOBIN 10.3 g/dL (11.5-14.8); LYMPHOCYTES # (AUTO) 1.4 K/uL (0.8-4.8); MEAN CORPUSCULAR HEMOGLOBIN 31 PG (26.0-33.0); MEAN CORPUSCULAR HGB CONC 31 g/dl (31.0-36.0); MEAN CORPUSCULAR VOLUME 98 fL (82-100); MONOCYTES # (AUTO) 0.3 K/uL (0.1-1.30); MONOCYTES % (AUTO) 5.4 % (2.0-12.0); NEUTROPHILS % (AUTO) 69.2 % (43.0-81.0); PLATELET COUNT (AUTO) 237 K/uL (150-450); RED BLOOD CELL COUNT(AUTO) 3.38 MIL/uL (4.0-5.2); RED CELL DISTRIBUTION WIDTH 15.8 % (11.5-15.0); WHITE BLOOD COUNT (AUTO) 5.7 K/uL (4.3-11.0)
[2024-05-25] MEDS: OLANZAPINE 10 MG VIAL IM ONE (13:18)
[2024-05-25 20:00] VITALS: BP 150/111; TEMP 98.4; O2SAT 100
[2024-05-26 04:13] VITALS: BP 134/51; TEMP 98.6; O2SAT 97
== END 2024-05-26 16:50 | DRG 394 ==
LOC: ER 13:31 → MEDSG1 16:35
PROVIDERS: ADMIT Internal Medicine
DX: K64.9 Unspecified hemorrhoids (principal); D62 Acute posthemorrhagic anemia; K92.2 Gastrointestinal hemorrhage, unspecified; I10 Essential (primary) hypertension; E11.9 Type 2 diabetes mellitus without complications; D64.9 Anemia, unspecified; E03.9 Hypothyroidism, unspecified; Z79.84 Long term (current) use of oral hypoglycemic drugs; F25.9 Schizoaffective disorder, unspecified; F43.10 Post-traumatic stress disorder, unspecified; D50.0 Iron deficiency anemia secondary to blood loss (chronic)
CPT/HCPCS: 36415; 80048-TC; 80076-TC; 82962-TC; 83735-TC; 84100-TC; 85025-TC; 85730-TC; 86850-TC; 87081-TC; A4223; G0378; J1815; J2470; J3490; J7030

== ENCOUNTER 2024-09-22 02:07 | Emergency (ER) | payer MEDICARE, OTHER ==
[~2024-09-22] VITALS: Ht 162.6 cm; Wt 63.5 kg
[~2024-09-22 02:07] MED LIST changes: +ACET-637 PO; +AMIN30LI2 PO; -BUSP10TA35 PO; +BUSP7.5T7 PO; +CRAN3875 PO; +DEXT38GE12 PO; +EYEL1KIT TP; +GLUC1KIT IM; -MELA1TAB47 PO; +MELA5TAB PO; +POLY15DR31 EACHEYE; -ZOLP5TAB2 PO
[2024-09-22 02:24] VITALS: TEMP 98
[2024-09-22 09:06] VITALS: O2SAT 97
[2024-09-22 09:28] VITALS: BP 106/59
== END 2024-09-22 09:29 | disposition home or self-care (01) ==
LOC: ER 02:18
DX: M25.552 Pain in left hip (principal); I10 Essential (primary) hypertension; E03.9 Hypothyroidism, unspecified; E11.9 Type 2 diabetes mellitus without complications; E78.00 Pure hypercholesterolemia, unspecified; F03.94 Unspecified dementia, unspecified severity, with anxiety; F17.200 Nicotine dependence, unspecified, uncomplicated; Z79.82 Long term (current) use of aspirin; Z79.84 Long term (current) use of oral hypoglycemic drugs; Z79.899 Other long term (current) drug therapy
CPT/HCPCS: 73700-TC